=== PATIENT | female | born 1955 | race African-American/Black ===

== ENCOUNTER 2018-03-01 11:17 | Emergency (ER) | payer OTHER ==
[~2018-03-01] VITALS: Ht 160 cm; Wt 113.4 kg
[~2018-03-01 11:17] MED LIST: Aspirin PO; CIPR500T94 PO; ONDA4TAB10 SL; SIMV40TA PO
[2018-03-01 11:20] VITALS: BP 192/93
[2018-03-01] MEDS ORDERED: MORPHINE SULFATE 10 MG/ML VIAL. IV ONE (12:00)
--- NOTE | 2018-03-01 13:36 | RAD ---
Right lower extremity venous duplex study 03/01/2018 Clinical History: Right leg pain and swelling. Technique: Using a combination of real time ultrasound imaging and color-flow and pulse Doppler imaging techniques along with graded compression and augmentation, duplex evaluation of the deep venous system of the right lower extremity was performed. Multiple images were obtained. Findings: There is no sonographic evidence of deep venous thrombosis involving the visualized deep venous structures of right lower extremity. Impression: Negative study. Electronically signed by: Soto Rowan MD (03/01/2018 1:33 PM) [facility]
[2018-03-01 14:23] LABS: BASO # 0.1 x10^3/uL (0.0-0.2); BASO % 1 % (0-3); CALCIUM 8.8 mg/dL (8.5-10.1); CREATININE 0.9 mg/dL (0.6-1.0); EOS # 0.1 x10^3/uL (0.0-0.7); EOS % 1 % (0-3); HEMATOCRIT 44.2 % (36.0-47.0); HEMOGLOBIN 14.3 g/dL (12.0-15.5); LYMPH # 1.9 x10^3/uL (1.0-4.8); LYMPH % 29 % (24-48); MEAN CORPUSCULAR HEMOGLOBIN 26 pg (25-35); MEAN CORPUSCULAR HGB CONC 32 g/dL (31-37); MEAN CORPUSCULAR VOLUME 80 fL (79-100); MONO # 0.5 x10^3/uL (0.0-1.1); MONO % 7 % (0-9); NEUT % 62 % (31-73); PLATELET COUNT 137 x10^3/uL (140-400); POTASSIUM 3.6 mmol/L (3.5-5.1); RED BLOOD COUNT 5.55 x10^6/uL (3.50-5.40); RED CELL DISTRIBUTION WIDTH 14.3 % (11.5-14.5); WHITE BLOOD COUNT 6.4 x10^3/uL (4.0-11.0)
[2018-03-01 14:25] LABS: C-REACTIVE PROTEIN 3.8 mg/L (0-3.3)
--- NOTE | 2018-03-01 15:21 | PHYS DOC ---
Past Medical History Past Medical History: Arthritis, CVA, Diabetes-Type II, High Cholesterol, TIA Past Surgical History: No Surgical History Alcohol Use: Rarely Drug Use: None Adult General Chief Complaint Chief Complaint: LOWER EXT PAIN HPI HPI Patient is a 63 year old female who presents with right leg pain. Patient has had right leg pain and what she perceives to be swelling over the last 6 days. She did not have any trauma. She has no recent travel. She has no history of thromboembolic disease. She does have a known history of diabetes but states she has not previously had any pain associated with that diagnosis. She has otherwise been at baseline health. No fever or chills. No respiratory symptoms. She has been eating and drinking and eliminating normally. Review of Systems Review of Systems Constitutional: Denies fever or chills Eyes: Denies change in visual acuity HENT: Denies nasal congestion Respiratory: Denies cough or shortness of breath Cardiovascular: No additional information GI: Denies abdominal pain, nausea : Denies dysuria Musculoskeletal: Denies back pain Integument: Denies rash Neurologic: Denies headache Endocrine: Denies polyuria All other systems were reviewed and found to be within normal limits, except as documented in this note. Current Medications Current Medications Current Medications Medications (Trade) Dose Ordered Sig/Efren Start Time Stop Time Status Last Admin Dose Admin Morphine Sulfate (Morphine Sulfate) 6 mg 1X ONCE 03/01/18 12:00 03/01/18 12:01 DC 03/01/18 11:58 6 MG Allergies Allergies Allergies Coded Allergies Type Severity Reaction Last Updated Verified No Known Drug Allergies 02/19/14 No Physical Exam Physical Exam Constitutional: Well developed, well nourished, no acute distress, non-toxic appearance HENT: Normocephalic, atraumatic, bilateral external ears normal Eyes: PERRLA, EOMI, conjunctiva normal Neck: Normal range of motion, no tenderness Cardiovascular:Heart rate regular rhythm, no murmur Lungs & Thorax: Bilateral breath sounds clear to auscultation Skin: Warm, dry, no erythema Back: No tenderness Extremities: Normal examination of the area of concern. Compartments in the lower legs are soft and non-tender. No edema or swelling. Neurologic: Alert and oriented X 3, normal motor function Psychologic: Affect normal Current Patient Data Vital Signs Vital Signs Date Time Temp Pulse Resp B/P (MAP) Pulse Ox O2 Delivery O2 Flow Rate FiO2 9/2/18 11:58 18 03/01/18 11:20 97.9 66 192/93 (126) 99 Room Air 97.9 Lab Values Laboratory Tests Test 03/01/18 11:50 White Blood Count 6.4 x10^3/uL (4.0-11.0) Red Blood Count 5.55 x10^6/uL (3.50-5.40) H Hemoglobin 14.3 g/dL (12.0-15.5) Hematocrit 44.2 % (36.0-47.0) Mean Corpuscular Volume 80 fL (79-100) Mean Corpuscular Hemoglobin 26 pg (25-35) Mean Corpuscular Hemoglobin Concent 32 g/dL (31-37) Red Cell Distribution Width 14.3 % (11.5-14.5) Platelet Count 137 x10^3/uL (140-400) L Neutrophils (%) (Auto) 62 % (31-73) Lymphocytes (%) (Auto) 29 % (24-48) Monocytes (%) (Auto) 7 % (0-9) Eosinophils (%) (Auto) 1 % (0-3) Basophils (%) (Auto) 1 % (0-3) Neutrophils # (Auto) 4.0 x10^3uL (1.8-7.7) Lymphocytes # (Auto) 1.9 x10^3/uL (1.0-4.8) Monocytes # (Auto) 0.5 x10^3/uL (0.0-1.1) Eosinophils # (Auto) 0.1 x10^3/uL (0.0-0.7) Basophils # (Auto) 0.1 x10^3/uL (0.0-0.2) Sodium Level 142 mmol/L (136-145) Potassium Level 3.6 mmol/L (3.5-5.1) Chloride Level 105 mmol/L (98-107) Carbon Dioxide Level 28 mmol/L (21-32) Anion Gap 9 (6-14) Blood Urea Nitrogen 14 mg/dL (7-20) Creatinine 0.9 mg/dL (0.6-1.0) Estimated GFR (Cockcroft-Gault) 76.0 Glucose Level 168 mg/dL (70-99) H Calcium Level 8.8 mg/dL (8.5-10.1) C-Reactive Protein, Quantitative 3.8 mg/L (0-3.3) H Laboratory Tests 03/01/18 11:50 Laboratory Tests 03/01/18 11:50 EKG EKG [] Radiology/Procedures Radiology/Procedures Duplex of right LE: Negative for DVT Course & Med Decision Making Course & Med Decision Making Pertinent Labs and Imaging studies reviewed. (See chart for details) Patient was evaluated for right leg pain. The examination of her leg was nonacute. She had an ultrasound which did not reveal DVT. Following this, labs were collected. CRP was not significantly elevated. White count was WAS normal. The cause for her leg pain is unclear although emergencies have been ruled out. Plan is for discharge home. She is placed on some ibuprofen for pain and [place] for more severe pain. Opiate precautions are discussed. The patient is accompanied by her family members today who are driving her home. Patient was also noted to have high blood pressure during the ED course sometimes with systolic blood pressures over 200. She was informed of these findings and advised again to follow up with her primary care doctor. Dragon Disclaimer Dragon Disclaimer This electronic medical record was generated, in whole or in part, using a voice recognition dictation system. Departure Departure Referrals: NO PCP (PCP) NANCY MADSEN DO Mar 01, 2018 15:20
[2018-03-01] MEDS ORDERED: HYDR-971 PO (15:28)
[2018-03-01] MEDS ORDERED: IBUP-1060 PO (15:28)
== END 2018-03-01 15:35 | disposition home or self-care (01) ==
LOC: ER 11:17
DX: M79.604 Pain in right leg (principal); E11.9 Type 2 diabetes mellitus without complications; E78.00 Pure hypercholesterolemia, unspecified; Z86.73 Personal history of transient ischemic attack (TIA), and cerebral infarction without residual deficits
CPT/HCPCS: 36415; 80048; 85025; 86140; 93971; 96374; 99285; J2270

== ENCOUNTER 2018-09-17 15:36 | Emergency (ER) | payer OTHER ==
[~2018-09-17] VITALS: Ht 157.5 cm; Wt 117.9 kg
[~2018-09-17 15:36] MED LIST changes: +HYDR-3164 PO; +IBUP-1060 PO
--- NOTE | 2018-09-17 18:56 | PHYS DOC ---
Past Medical History Past Medical History: Arthritis, CVA, Diabetes-Type II, Glaucoma, High Cholesterol, TIA Additional Past Medical Histor: MINI STROKE 6 MONTHS AGO Past Surgical History: No Surgical History Alcohol Use: Rarely Drug Use: None Adult General Chief Complaint Chief Complaint: HEADACHE HPI HPI Patient is a 63-year-old female who presents with complaint of elevated blood pressure and headache. She also indicates that she has a little bit of nausea. She denies any chest pain or shortness of breath. She does indicate that her legs off of times. Patient states that her blood pressures have been running high in the 180s to 190s for quite some time but states that she is on no blood pressure medication. She states that it is been a long time since she has been seen by a physician. Review of Systems Review of Systems Constitutional: Denies fever or chills [] Eyes: Denies change in visual acuity, redness, or eye pain [] Respiratory: Denies cough or shortness of breath [] Cardiovascular: No additional information not addressed in HPI [] GI: Denies abdominal pain, nausea, vomiting or diarrhea [] Musculoskeletal: Denies back pain or joint pain [] Integument: Denies rash or skin lesions [] Neurologic: Complains of headache without focal weakness or sensory changes [] All other systems were reviewed and found to be within normal limits, except as documented in this note. Current Medications Current Medications Current Medications Medications (Trade) Dose Ordered Sig/[facility] Start Time Stop Time Status Last Admin Dose Admin Clonidine HCl (Catapres) 0.2 mg 1X ONCE 09/17/18 20:15 09/17/18 20:16 DC 09/17/18 20:25 0.2 MG Allergies Allergies Allergies Coded Allergies Type Severity Reaction Last Updated Verified No Known Drug Allergies 02/19/14 No Physical Exam Physical Exam Constitutional: Well developed, well nourished, no acute distress, non-toxic appearance. [] HENT: Normocephalic, atraumatic, bilateral external ears normal, oropharynx moist, no oral exudates, nose normal. [] Eyes: PERRLA, EOMI, conjunctiva normal, no discharge. [] Neck: Normal range of motion, no tenderness, supple, no stridor. [] Cardiovascular: Regular rate and rhythm[] Lungs & Thorax: Bilateral breath sounds clear to auscultation [] Abdomen: Bowel sounds normal, soft, no tenderness. [] Skin: Warm, dry, no erythema, no rash. [] Extremities: No tenderness, no cyanosis, no clubbing, ROM intact, no edema. [] Neurologic: Alert and oriented X 3, no focal deficits noted. [] Current Patient Data Vital Signs Vital Signs Date Time Temp Pulse Resp B/P (MAP) Pulse Ox O2 Delivery O2 Flow Rate FiO2 09/17/18 20:25 62 217/93 09/17/18 18:20 98.2 20 98 Room Air 98.2 Lab Values Laboratory Tests Test 09/17/18 19:09 09/17/18 20:15 White Blood Count 8.9 x10^3/uL (4.0-11.0) Red Blood Count 5.86 x10^6/uL (3.50-5.40) H Hemoglobin 14.7 g/dL (12.0-15.5) Hematocrit 46.8 % (36.0-47.0) Mean Corpuscular Volume 80 fL (79-100) Mean Corpuscular Hemoglobin 25 pg (25-35) Mean Corpuscular Hemoglobin Concent 32 g/dL (31-37) Red Cell Distribution Width 14.4 % (11.5-14.5) Platelet Count 141 x10^3/uL (140-400) Neutrophils (%) (Auto) 54 % (31-73) Lymphocytes (%) (Auto) 34 % (24-48) Monocytes (%) (Auto) 9 % (0-9) Eosinophils (%) (Auto) 2 % (0-3) Basophils (%) (Auto) 1 % (0-3) Neutrophils # (Auto) 4.8 x10^3uL (1.8-7.7) Lymphocytes # (Auto) 3.0 x10^3/uL (1.0-4.8) Monocytes # (Auto) 0.8 x10^3/uL (0.0-1.1) Eosinophils # (Auto) 0.1 x10^3/uL (0.0-0.7) Basophils # (Auto) 0.1 x10^3/uL (0.0-0.2) Sodium Level 143 mmol/L (136-145) Potassium Level 4.6 mmol/L (3.5-5.1) Chloride Level 106 mmol/L (98-107) Carbon Dioxide Level 31 mmol/L (21-32) Anion Gap 6 (6-14) Blood Urea Nitrogen 13 mg/dL (7-20) Creatinine 0.8 mg/dL (0.6-1.0) Estimated GFR (Cockcroft-Gault) 87.1 BUN/Creatinine Ratio 16 (6-20) Glucose Level 156 mg/dL (70-99) H Calcium Level 9.2 mg/dL (8.5-10.1) Total Bilirubin 0.3 mg/dL (0.2-1.0) Aspartate Amino Transferase (AST) 16 U/L (15-37) Alanine Aminotransferase (ALT) 22 U/L (14-59) Alkaline Phosphatase 98 U/L (46-116) Troponin I Quantitative < 0.017 ng/mL (0.000-0.055) Total Protein 8.0 g/dL (6.4-8.2) Albumin 3.5 g/dL (3.4-5.0) Albumin/Globulin Ratio 0.8 (1.0-1.7) L Urine Collection Type Unknown Urine Color Yellow Urine Clarity Cloudy Urine pH 5.0 Urine Specific [place] 1.025 Urine Protein Negative mg/dL (NEG-TRACE) Urine Glucose (UA) Negative mg/dL (NEG) Urine Ketones (Stick) 15 mg/dL (NEG) Urine Blood Large (NEG) Urine Nitrite Negative (NEG) Urine Bilirubin Negative (NEG) Urine Urobilinogen Dipstick 1.0 mg/dL (0.2 mg/dL) Urine Leukocyte Esterase Negative (NEG) Urine RBC 11-20 /HPF (0-2) Urine WBC 1-4 /HPF (0-4) Urine Squamous Epithelial Cells Many /LPF Urine Bacteria Many /HPF (0-FEW) Urine Mucus Slight /LPF Laboratory Tests 09/17/18 19:09 Laboratory Tests 09/17/18 19:09 EKG EKG [] Radiology/Procedures Radiology/Procedures [] Course & Med Decision Making Course & Med Decision Making Pertinent Labs and Imaging studies reviewed. (See chart for details) [] Dragon Disclaimer Dragon Disclaimer This electronic medical record was generated, in whole or in part, using a voice recognition dictation system. Departure Departure Impression: Primary Impression: Essential hypertension Disposition: HOME, SELF-CARE Condition: STABLE Referrals: NO PCP (PCP) Patient Instructions: Hypertension Additional Instructions: Follow-up with your primary care provider in the next week. Scripts Lisinopril/Hydrochlorothiazide (LISINOPRIL-HCTZ 10-12.5 MG TAB) 1 Each Tablet 1 TAB PO DAILY, #30 TAB Prov: OLIVERIO ADAMES Jr. DO 09/17/18 OLIVERIO ADAMES Jr. DO Sep 17, 2018 18:56
[2018-09-17 19:30] LABS: BASO # 0.1 x10^3/uL (0.0-0.2); BASO % 1 % (0-3); EOS # 0.1 x10^3/uL (0.0-0.7); EOS % 2 % (0-3); HEMATOCRIT 46.8 % (36.0-47.0); HEMOGLOBIN 14.7 g/dL (12.0-15.5); LYMPH % 34 % (24-48); MEAN CORPUSCULAR HEMOGLOBIN 25 pg (25-35); MEAN CORPUSCULAR HGB CONC 32 g/dL (31-37); MEAN CORPUSCULAR VOLUME 80 fL (79-100); MONO # 0.8 x10^3/uL (0.0-1.1); MONO % 9 % (0-9); NEUT # 4.8 x10^3uL (1.8-7.7); NEUT % 54 % (31-73); PLATELET COUNT 141 x10^3/uL (140-400); RED BLOOD COUNT 5.86 x10^6/uL (3.50-5.40); RED CELL DISTRIBUTION WIDTH 14.4 % (11.5-14.5); WHITE BLOOD COUNT 8.9 x10^3/uL (4.0-11.0)
[2018-09-17 19:38] LABS: CALCIUM 9.2 mg/dL (8.5-10.1); CREATININE 0.8 mg/dL (0.6-1.0); GFR 87.1; POTASSIUM 4.6 mmol/L (3.5-5.1)
[2018-09-17 19:45] LABS: ALBUMIN 3.5 g/dL (3.4-5.0); ALBUMIN/GLOBULIN RATIO 0.8 (1.0-1.7); TOTAL BILIRUBIN 0.3 mg/dL (0.2-1.0)
[2018-09-17] MEDS ORDERED: cloNIDine HCL 0.1 MG TABLET PO ONE (20:15)
[2018-09-17 20:31] LABS: BILIRUBIN,URINE NEGATIVE (NEG); CLARITY,URINE CLOUDY; COLOR,URINE YELLOW; NITRITE,URINE NEGATIVE (NEG); PROTEIN,URINE NEGATIVE (NEG-TRACE)
[2018-09-17 20:50] LABS: SQUAMOUS EPITHELIAL CELL,UR MANY /LPF
[2018-09-17 20:51] LABS: BACTERIA,URINE MANY /HPF (0-FEW)
[2018-09-17 21:09] VITALS: BP 157/69
[2018-09-17] MEDS ORDERED: LISI1TAB3 PO (21:15)
--- NOTE | 2018-09-18 08:42 | EKG ---
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
== END 2018-09-17 21:54 | disposition home or self-care (01) ==
LOC: ER 15:36
DX: I10 Essential (primary) hypertension (principal); R51 Headache; R11.0 Nausea; E11.39 Type 2 diabetes mellitus with other diabetic ophthalmic complication; H40.9 Unspecified glaucoma; E78.00 Pure hypercholesterolemia, unspecified; Z86.73 Personal history of transient ischemic attack (TIA), and cerebral infarction without residual deficits
CPT/HCPCS: 36415; 80053; 81001; 84484; 85025; 87086; 93005; 99284-25

== ENCOUNTER 2020-02-14 20:27 | Inpatient (IN) | payer MEDICAID, OTHER ==
[~2020-02-14] VITALS: Ht 162.6 cm; Wt 116.1 kg
[~2020-02-14 20:27] MED LIST changes: +LISI1TAB23 PO
--- NOTE | 2020-02-14 22:34 | PHYS DOC ---
Past Medical History Past Medical History: Arthritis, CVA, Diabetes-Type II, Glaucoma, High Ch olesterol, TIA Additional Past Medical Histor: MINI STROKE Past Surgical History: No Surgical History Smoking Status: Current Every Day Smoker Alcohol Use: Rarely Drug Use: None General Adult EDM: Chief Complaint: NAUSEA/VOMITING/DIARRHA HPI: HPI: Patient is a 65 year old female who presents with complaints of nausea and vomiting. She reports that it started on Friday on Friday evening she was at home. She began to have some nausea which was followed by vomiting. Patient reports that she generally suffers from constipation and has had some bowel movements but denies any diarrhea. She has had no more than 1 bowel movement daily. No melena, no hematochezia, the emesis is bilious in nature. Patient denies any difficulty with abdominal pain but does complain of some low back pain. The low back pain started after she started vomiting. Patient points to the right iliolumbar and pelvic brim area. The pain does not radiate, is worse with movement and is aching in nature. Patient denies any change in urination, fever, chills, sweats, cough, change in smell or taste, shortness of breath or chest pain. Review of Systems: Review of Systems: Constitutional: Denies fever or chills. [] Eyes: Denies change in visual acuity. [] HENT: Denies nasal congestion or sore throat. [] Respiratory: Denies cough or shortness of breath. [] Cardiovascular: Denies chest pain or edema. [] GI: See HPI [] : Denies dysuria. [] Musculoskeletal: See HPI. [] Integument: Denies rash. [] Neurologic: Denies headache, focal weakness or sensory changes. [] Endocrine: Denies polyuria or polydipsia. [] Lymphatic: Denies swollen glands. [] Psychiatric: Denies depression or anxiety. [] Heart Score: Risk Factors: Risk Factors: DM, Current or recent (<one month) smoker, HTN, HLP, family history of CAD, obesity. Risk Scores: Score 0 - 3: 2.5% MACE over next 6 weeks - Discharge Home Score 4 - 6: 20.3% MACE over next 6 weeks - Admit for Clinical Observation Score 7 - 10: 72.7% MACE over next 6 weeks - Early Invasive Strategies Allergies: Allergies: Allergies Coded Allergies Type Severity Reaction Last Updated Verified No Known Drug Allergies 02/19/14 No Physical Exam: PE: Constitutional: Well developed, well nourished, no acute distress, non-toxic appearance. [] HENT: Normocephalic, atraumatic, bilateral external ears normal, oropharynx dry, posterior oropharynx with mild erythema no oral exudates, nose normal. [] Eyes: PERRLA, EOMI, conjunctiva normal, no discharge. [] Neck: Normal range of motion, no tenderness, supple, no stridor. [] Cardiovascular:Heart rate regular rhythm, no murmur [] Lungs & Thorax: Bilateral breath sounds clear to auscultation [] Abdomen: Bowel sounds normal, soft, tender in the epigastrium and right upper quadrant, negative [place] sign, pain worsened with increasing abdominal wall tension, no masses, no pulsatile masses. [] Skin: Warm, dry, no erythema, no rash. [] Back: No tenderness, no CVA tenderness. All dermatomes and myotomes of the lower extremities were tested and normal, tenderness of the iliolumbar muscles and pelvic brim reproducing her pain [] Extremities: No tenderness, no cyanosis, no clubbing, ROM intact, no edema. [] Neurologic: Alert and oriented X 3, normal motor function, normal sensory function, no focal deficits noted. [] [] Current Patient Data: Vital Signs: Vital Signs Date Time Temp Pulse Resp B/P (MAP) Pulse Ox O2 Delivery O2 Flow Rate FiO2 02/14/20 20:30 97.7 88 16 149/82 (104) 98 Room Air 97.7 EKG: EKG: [] Radiology/Procedures: Radiology/Procedures: [] Course & Med Decision Making: Course & Med Decision Making Pertinent Labs and Imaging studies reviewed. (See chart for details) 0106-patient was seen and reevaluated. I discussed all laboratory and ultrasound data with patient. I also discussed the case with Dr. Mishra who agreed to consult with the patient for consideration of cholecystectomy. I admitted to the hospitalist service. [] Dragon Disclaimer: Dragon Disclaimer: This electronic medical record was generated, in whole or in part, using a voice recognition dictation system. Departure Departure Impression: Primary Impression: Acute cholecystitis Additional Impressions: Common bile duct stone Right upper quadrant abdominal pain Nausea & vomiting Qualified Codes: R11.14 - Bilious vomiting Disposition: 09 ADMITTED INPATIENT Condition: STABLE Referrals: NO PCP (PCP) Justicifation of Admission Dx: Justifications for Admission: Justification of Admission Dx: Yes Comments: Acute cholecystitis with common bile duct stone RAFY LING MD Feb 14, 2020 22:34
[2020-02-14 22:42] LABS: BASO # 0.1 x10^3/uL (0.0-0.2); BASO % 1 % (0-3); EOS # 0.2 x10^3/uL (0.0-0.7); EOS % 2 % (0-3); HEMATOCRIT 42.5 % (36.0-47.0); HEMOGLOBIN 13.6 g/dL (12.0-15.5); LYMPH # 1.6 x10^3/uL (1.0-4.8); LYMPH % 18 % (24-48); MEAN CORPUSCULAR HEMOGLOBIN 26 pg (25-35); MEAN CORPUSCULAR HGB CONC 32 g/dL (31-37); MEAN CORPUSCULAR VOLUME 80 fL (79-100); MONO # 0.7 x10^3/uL (0.0-1.1); MONO % 9 % (0-9); NEUT # 6.1 x10^3/uL (1.8-7.7); NEUT % 70 % (31-73); RED BLOOD COUNT 5.32 x10^6/uL (3.50-5.40); RED CELL DISTRIBUTION WIDTH 13.4 % (11.5-14.5); WHITE BLOOD COUNT 8.7 x10^3/uL (4.0-11.0)
[2020-02-14 22:51] LABS: CALCIUM 8.3 mg/dL (8.5-10.1); GFR 66.9; POTASSIUM 3.1 mmol/L (3.5-5.1)
[2020-02-14 22:55] LABS: BILIRUBIN,URINE MODERATE (NEG); CLARITY,URINE CLOUDY; NITRITE,URINE NEGATIVE (NEG); PROTEIN,URINE NEGATIVE (NEG-TRACE)
[2020-02-14 22:58] LABS: ALBUMIN 3.1 g/dL (3.4-5.0); ALBUMIN/GLOBULIN RATIO 0.8 (1.0-1.7); TOTAL BILIRUBIN 3.4 mg/dL (0.2-1.0)
[2020-02-14] MEDS ORDERED: METOCLOPRAMIDE HCL 10 MG/2 ML VIAL. IVP ONE (23:00)
[2020-02-14] MEDS ORDERED: KETOROLAC 30 MG/ML VIAL. IVP ONE (23:00)
[2020-02-14] MEDS ORDERED: IV NORMAL SALINE 1000ML BAG 1,000 ML IV ONE (23:00)
[2020-02-14 23:01] LABS: COLOR,URINE AMBER
[2020-02-14 23:02] LABS: AMORPHOUS SEDIMENT,UR PRESENT /HPF; BACTERIA,URINE MODERATE /HPF (0-FEW); RBC,URINE 0 /HPF (0-2); SQUAMOUS EPITHELIAL CELL,UR MANY /LPF
[2020-02-14 23:06] LABS: PLATELET COUNT 182 x10^3/uL (140-400)
[2020-02-14] MEDS ORDERED: HYDROmorphone 2 MG/ML VIAL IV ONE (23:45)
[2020-02-14] MEDS ORDERED: CONTRAST GIVEN. MC PRN (23:45)
[2020-02-14] MEDS ORDERED: IOHEXOL 300 MG/ML 100ML VIAL. IV ONE (23:45)
--- NOTE | 2020-02-15 00:33 | RAD ---
INDICATION : Reason: ruq ABD PAIN / Spl. Instructions: / History: COMPARISON: None TECHNIQUE: Multiple ultrasound images obtained through the abdomen in grayscale and color. FINDINGS: Liver: Echogenic. Partially visualized. Gallbladder: Stones and sludge within the distention. Measures up to 10.3 cm. Wall thickening up to about 5 mm. IVC: Partially distended at level of liver. Common Bile Duct: Dilated, 7 mm-8mm. Pancreas: Largely obscured by overlying soft tissues. Pancreatic duct is partially seen and appears dilated up to 4-5 mm. Right Kidney: No hydronephrosis. IMPRESSION: * Bile duct dilation is identified. There is also gallstones seen. Cause such as a distal common bile duct stone are within the differential given these findings. * There is some wall thickening with distended gallbladder with stones. Causes such as cholecystitis are not excluded on this exam given these findings. * Echogenic liver which can be from fatty infiltration. Electronically signed by: Vaughn Sandoval MD (02/15/2020 12:30 AM) [id number]
[2020-02-15] MEDS ORDERED: PIPERACILLIN/TAZOBACTAM 3.375 GM in IV NORMAL SALINE 50ML 50 ML IV ONE (01:00)
[2020-02-15] MEDS ORDERED: MORPHINE SULFATE 4 MG/ML VIAL. IV PRN (01:15)
--- NOTE | 2020-02-15 05:15 | NUR ---
The patient, ELFEGO PARSONS, 65 y/o, F admitted by KATHY MADDEN MD, was given written information regarding hospital policies, unit procedures and contact persons. patient was transferred to room 528 at this time via ED bed, assisted by ED staff member. Valuables were checked and noted. patient is currently laying in bed talking on the phone with her [id number] and watching TV. patient denies any needs at this time. this RN will continue to monitor the patient at this time.
[2020-02-15] MEDS: IV NORMAL SALINE 1000ML BAG 1,000 ML IV SCH ×2 (05:52→18:34)
[2020-02-15 07:00] VITALS: BP_SYST 134; BP_SYST 135; BP_DIAS 28; BP_DIAS 30
--- NOTE | 2020-02-15 08:15 | PDOC1 ---
History and Physical Date of Admission Date of Admission DATE: 02/15/20 TIME: 08:11 Identification/Chief Complaint Chief Complaint Nausea and vomiting Source Source: Patient History of Present Illness History of Present Illness Ms Cox is a 65yo F w/ PMHx Arthritis, CVA, Diabetes-Type II, Glaucoma, High Cholesterol, TIA, smoker, bipolar disorder who comes to the ED with complaints of abdominal pain, nausea and vomiting. She reports that it started on 02/12/2020 she awoke with RUQ and mid back pain while at home. The pain comes and goes, does not radiate into other parts of her abdomen. She began to have some nausea which was followed by vomiting. She continues to move her bowels, but has not been able to tolerate any food. No melena, no hematochezia, the emesis is bilious. Patient denies any change in urination, fever, chills, sweats, cough, change in smell or taste, shortness of breath or chest pain. Labs significant for WBC 8.7, Hb 13.6, platelets 22, NA 142, K3.1, CR 1, glucose 216, bilirubin 3.4, AST 571, ALT 930, alkaline phosphatase 198, albumin 3.1, lipase 88. RUQ US - Stones and sludge within the distention. Measures up to 10.3 cm. Wall thickening up to about 5 mm, Common Bile Duct: Dilated, 7 mm-8mm. Pancreatic duct 4-5 mm. Admitted for further care Past Medical History Cardiovascular: HTN Endocrine: Diabetes Past Surgical History Past Surgical History: No pertinent history Family History Family History: High Cholestrol, Hypertension Social History Smoke: <1 pack per day ALCOHOL: none Drugs: None Current Problem List Problem List Problems Medical Problems: (1) Acute cholecystitis Status: Acute (2) Common bile duct stone Status: Acute (3) Nausea & vomiting Status: Acute (4) Right upper quadrant abdominal pain Status: Acute Current Medications Current Medications Current Medications Ketorolac Tromethamine (Toradol 30mg Vial) 30 mg 1X ONCE IVP Last administered on 02/14/20at 23:18; Start 02/14/20 at 23:00; Stop 02/14/20 at 23:01; Status DC Metoclopramide HCl (Reglan Vial) 10 mg 1X ONCE IVP Last administered on 02/14/20at 23:18; Start 8/17/20 at 23:00; Stop 02/14/20 at 23:01; Status DC Sodium Chloride 1,000 ml @ 1,000 mls/hr 1X ONCE IV Last administered on 02/14/20at 23:18; Start 02/14/20 at 23:00; Stop 02/14/20 at 23:59; Status DC Hydromorphone HCl (Dilaudid) 0.5 mg 1X ONCE IV ; Start 02/14/20 at 23:45; Stop 02/14/20 at 23:46; Status DC Iohexol (Omnipaque 300 Mg/ml) 75 ml 1X ONCE IV ; Start 02/14/20 at 23:45; Stop 02/14/20 at 23:46; Status DC Info (CONTRAST GIVEN -- Rx MONITORING) 1 each PRN DAILY PRN MC SEE COMMENTS; Start 02/14/20 at 23:45; Stop 02/16/20 at 23:44 Piperacillin Sod/ Tazobactam Sod 3.375 gm/Sodium Chloride 50 ml @ 100 mls/hr 1X ONCE IV Last administered on 02/15/20at 01:00; Start 02/15/20 at 01:00; Stop 02/15/20 at 01:29; Status DC Morphine Sulfate (Morphine Sulfate) 4 mg PRN Q2HR PRN IV SEVERE PAIN 7-10; Start 02/15/20 at 01:15; Stop 02/16/20 at 01:14 Sodium Chloride 1,000 ml @ 75 mls/hr [id number] IV Last administered on 02/15/20at 05:52; Start 02/15/20 at 01:09; Stop 02/16/20 at 01:08 Active Scripts Active Lisinopril-Hctz 10-12.5 Mg Tab (Lisinopril/Hydrochlorothiazide) 1 Each Tablet 1 Tab PO DAILY Hubbell 5-325 Tablet (Acetaminophen/Hydrocodone Bitart) 1 Each Tablet 1-2 Each PO PRN Q6HRS PRN as needed for pain Ibuprofen 800 Mg Tablet 800 Mg PO PRN TID PRN take with food or milk to avoid upsetting stomach Cipro (Ciprofloxacin Hcl) 500 Mg Tablet 1 Tab PO BID Zofran Odt (Ondansetron) 4 Mg Tab.rapdis 1 Tab SL Q6HRS PRN [Aspirin] 325 MG Tablet.dr 325 Mg PO [id number] Zocor (Simvastatin) 40 Mg Tablet 40 Mg PO QHS 30 Days Allergies Allergies: Coded Allergies: No Known Drug Allergies (Unverified , 02/19/14) ROS General: No: Chills, Night Sweats, Fatigue, Malaise, Appetite, Other PSYCHOLOGICAL ROS: No: Anxiety, Behavioral Disorder, Concentration difficultie, Decreased libido, Depression, Disorientation, Hallucinations, Hostility, Irritablity, Memory difficulties, Mood Swings, Obsessive thoughts, Physical abuse, Sexual abuse, Sleep disturbances, Suicidal ideation, Other Eyes: No Blurry vision, No Decreased vision, No Double vision, No Dry eyes, No Excessive tearing, No Eye Pain, No Itchy Eyes, No Loss of vision, No Photophobia, No Scotomata, No Uses contacts, No Uses glasses, No Other HEENT: No: Heacaches, Visual Changes, Hearing change, Nasal congestion, Nasal discharge, Oral lesions, Sinus pain, Sore Throat, Epistaxis, Sneezing, Snoring, Tinnitus, Vertigo, Vocal changes, Other ALLERGY AND IMMUNOLOGY: No: Hives, Insect Bite Sensitivity, Itchy/Watery Eyes, Nasal Congestion, Post Nasal Drip, Seasonal Allergies, Other Hematological and Lymphatic: No: Bleeding Problems, Blood Clots, Blood Transfusions, Brusing, Night Sweats, Pallor, Swollen Lymph Nodes, Other ENDOCRINE: No: Breast Changes, Galactorrhea, Hair Pattern Changes, Hot Flashes, Malaise/lethargy, Mood Swings, Palpitations, Polydipsia/polyuria, Skin Changes, Temperature Intolerance, Unexpected Weight Changes, Other Breast: No New/Changing Breast Lumps, No Nipple changes, No Nipple discharge, No Other Respiratory: No: Cough, Hemoptysis, Orthopnea, Pleuritic Pain, Shortness of breath, SOB with excertion, Sputum Changes, Stridor, Tachypnea, Wheezing, Other Cardiovascular: No Chest Pain, No Palpitations, No Orthopnea, No Paroxysmal Noc. Dyspnea, No Edema, No Lt Headedness, No Other Gastrointestinal: Yes Nausea, Yes Vomiting, Yes Abdominal Pain; No Diarrhea, No Constipation, No Melena, No Hematochezia, No Other Genitourinary: No Dysuria, No Frequency, No Incontinence, No Hematuria, No Retention, No Discharge, No Urgency, No Pain, No Flank Pain, No Other, No , No , No , No , No , No , No Musculoskeletal: No Gait Disturbance, No Joint Pain, No Joint Stiffness, No Joint Swelling, No Muscle Pain, No Muscular Weakness, No Pain In:, No Swelling In:, No Other Neurological: No Behavorial Changes, No Bowel/Bladder ControlChng, No Conf usion, No Dizziness, No Gait Disturbance, No Headaches, No Impaired Coord/balance, No Memory Loss, No Numbness/Tingling, No Seizures, No Speech Problems, No Tremors, No Visual Changes, No Weakness, No Other Skin: No Dry Skin, No Eczema, No Hair Changes, No Lumps, No Mole Changes, No Mottling, No Nail Changes, No Pruritus, No Rash, No Skin Lesion Changes, No Ot her, No Acne Physical Exam General: Alert, Oriented X3, Cooperative, mild distress HEENT: Atraumatic, PERRLA, EOMI, Mucous membr. moist/pink Lungs: Clear to auscultation, Normal air movement Heart: S1S2, RRR, no thrills, no rubs, no gallops, no murmurs Abdomen: Normal bowel sounds, Soft, No hepatosplenomegaly, No masses, Other (RUQ tender) Rectal Exam: not examined Extremities: No clubbing, No cyanosis, No edema, Normal pulses, No tenderness/swelling Skin: No rashes, No breakdown, No significant lesion Neuro: Normal gait, Normal speech, Strength at 5/5 X4 ext, Normal tone, Sensation intact, Cranial nerves 3-12 NL, Reflexes 2+ Psych/Mental Status: Mental status NL, Mood NL Vitals Vitals Vital Signs Date Time Temp Pulse Resp B/P (MAP) Pulse Ox O2 Delivery O2 Flow Rate FiO2 02/15/20 05:25 Room Air 02/15/20 04:45 54 192/84 (120) 100 02/14/20 20:30 97.7 16 97.7 Labs Labs Laboratory Tests Test 02/14/20 21:00 02/14/20 21:30 Urine Collection Type Unknown Urine Color Mouna Urine Clarity Cloudy Urine pH 7.0 (<5.0-8.0) Urine Specific [place] 1.020 (1.000-1.030) Urine Protein Negative mg/dL (NEG-TRACE) Urine Glucose (UA) Negative mg/dL (NEG) Urine Ketones (Stick) Trace mg/dL (NEG) Urine Blood Trace (NEG) Urine Nitrite Negative (NEG) Urine Bilirubin Moderate (NEG) Urine Urobilinogen Dipstick 4.0 mg/dL (0.2 mg/dL) Urine Leukocyte Esterase Small (NEG) Urine RBC 0 /HPF (0-2) Urine WBC 5-10 /HPF (0-4) Urine Squamous Epithelial Cells Many /LPF Urine Amorphous Sediment Present /HPF Urine Bacteria Moderate /HPF (0-FEW) Urine Mucus Slight /LPF White Blood Count 8.7 x10^3/uL (4.0-11.0) Red Blood Count 5.32 x10^6/uL (3.50-5.40) Hemoglobin 13.6 g/dL (12.0-15.5) Hematocrit 42.5 % (36.0-47.0) Mean Corpuscular Volume 80 fL (79-100) Mean Corpuscular Hemoglobin 26 pg (25-35) Mean Corpuscular Hemoglobin Concent 32 g/dL (31-37) Red Cell Distribution Width 13.4 % (11.5-14.5) Platelet Count 182 x10^3/uL (140-400) Neutrophils (%) (Auto) 70 % (31-73) Lymphocytes (%) (Auto) 18 % (24-48) Monocytes (%) (Auto) 9 % (0-9) Eosinophils (%) (Auto) 2 % (0-3) Basophils (%) (Auto) 1 % (0-3) Neutrophils # (Auto) 6.1 x10^3/uL (1.8-7.7) Lymphocytes # (Auto) 1.6 x10^3/uL (1.0-4.8) Monocytes # (Auto) 0.7 x10^3/uL (0.0-1.1) Eosinophils # (Auto) 0.2 x10^3/uL (0.0-0.7) Basophils # (Auto) 0.1 x10^3/uL (0.0-0.2) Sodium Level 142 mmol/L (136-145) Potassium Level 3.1 mmol/L (3.5-5.1) Chloride Level 100 mmol/L (98-107) Carbon Dioxide Level 39 mmol/L (21-32) Anion Gap 3 (6-14) Blood Urea Nitrogen 12 mg/dL (7-20) Creatinine 1.0 mg/dL (0.6-1.0) Estimated GFR (Cockcroft-Gault) 66.9 BUN/Creatinine Ratio 12 (6-20) Glucose Level 216 mg/dL (70-99) Calcium Level 8.3 mg/dL (8.5-10.1) Total Bilirubin 3.4 mg/dL (0.2-1.0) Aspartate Amino Transf (AST/SGOT) 571 U/L (15-37) Alanine Aminotransferase (ALT/SGPT) 930 U/L (14-59) Alkaline Phosphatase 188 U/L (46-116) Total Protein 7.0 g/dL (6.4-8.2) Albumin 3.1 g/dL (3.4-5.0) Albumin/Globulin Ratio 0.8 (1.0-1.7) Lipase 88 U/L (73-393) Laboratory Tests Test 02/14/20 21:00 02/14/20 21:30 Urine Collection Type Unknown Urine Color Mouna Urine Clarity Cloudy Urine pH 7.0 (<5.0-8.0) Urine Specific [place] 1.020 (1.000-1.030) Urine Protein Negative mg/dL (NEG-TRACE) Urine Glucose (UA) Negative mg/dL (NEG) Urine Ketones (Stick) Trace mg/dL (NEG) Urine Blood Trace (NEG) Urine Nitrite Negative (NEG) Urine Bilirubin Moderate (NEG) Urine Urobilinogen Dipstick 4.0 mg/dL (0.2 mg/dL) Urine Leukocyte Esterase Small (NEG) Urine RBC 0 /HPF (0-2) Urine WBC 5-10 /HPF (0-4) Urine Squamous Epithelial Cells Many /LPF Urine Amorphous Sediment Present /HPF Urine Bacteria Moderate /HPF (0-FEW) Urine Mucus Slight /LPF White Blood Count 8.7 x10^3/uL (4.0-11.0) Red Blood Count 5.32 x10^6/uL (3.50-5.40) Hemoglobin 13.6 g/dL (12.0-15.5) Hematocrit 42.5 % (36.0-47.0) Mean Corpuscular Volume 80 fL (79-100) Mean Corpuscular Hemoglobin 26 pg (25-35) Mean Corpuscular Hemoglobin Concent 32 g/dL (31-37) Red Cell Distribution Width 13.4 % (11.5-14.5) Platelet Count 182 x10^3/uL (140-400) Neutrophils (%) (Auto) 70 % (31-73) Lymphocytes (%) (Auto) 18 % (24-48) Monocytes (%) (Auto) 9 % (0-9) Eosinophils (%) (Auto) 2 % (0-3) Basophils (%) (Auto) 1 % (0-3) Neutrophils # (Auto) 6.1 x10^3/uL (1.8-7.7) Lymphocytes # (Auto) 1.6 x10^3/uL (1.0-4.8) Monocytes # (Auto) 0.7 x10^3/uL (0.0-1.1) Eosinophils # (Auto) 0.2 x10^3/uL (0.0-0.7) Basophils # (Auto) 0.1 x10^3/uL (0.0-0.2) Sodium Level 142 mmol/L (136-145) Potassium Level 3.1 mmol/L (3.5-5.1) Chloride Level 100 mmol/L (98-107) Carbon Dioxide Level 39 mmol/L (21-32) Anion Gap 3 (6-14) Blood Urea Nitrogen 12 mg/dL (7-20) Creatinine 1.0 mg/dL (0.6-1.0) Estimated GFR (Cockcroft-Gault) 66.9 BUN/Creatinine Ratio 12 (6-20) Glucose Level 216 mg/dL (70-99) Calcium Level 8.3 mg/dL (8.5-10.1) Total Bilirubin 3.4 mg/dL (0.2-1.0) Aspartate Amino Transf (AST/SGOT) 571 U/L (15-37) Alanine Aminotransferase (ALT/SGPT) 930 U/L (14-59) Alkaline Phosphatase 188 U/L (46-116) Total Protein 7.0 g/dL (6.4-8.2) Albumin 3.1 g/dL (3.4-5.0) Albumin/Globulin Ratio 0.8 (1.0-1.7) Lipase 88 U/L (73-393) Images Images RUQ US: Liver: Echogenic. Partially visualized. Gallbladder: Stones and sludge within the distention. Measures up to 10.3 cm. Wall thickening up to about 5 mm. IVC: Partially distended at level of liver. Common Bile Duct: Dilated, 7 mm-8mm. Pancreas: Largely obscured by overlying soft tissues. Pancreatic duct is partially seen and appears dilated up to 4-5 mm. Right Kidney: No hydronephrosis. IMPRESSION: * Bile duct dilation is identified. There is also gallstones seen. Cause such as a distal common bile duct stone are within the differential given these findings. * There is some wall thickening with distended gallbladder with stones. Causes such as cholecystitis are not excluded on this exam given these findings. * Echogenic liver which can be from fatty infiltration. VTE Prophylaxis Ordered VTE Prophylaxis Devices: No VTE Pharmacological Prophylaxi: Yes Assessment/Plan Assessment/Plan A/P: Nausea and vomiting - likely related to cholecystitis, IV antiemetics, NPO RUQ pain - acute cholecystitis with possible choledocholithiasis. Zosyn q6hrs, consult GI and surgery Diabetes-Type II - sliding scale insulin High Cholesterol - hold statin while NPO H/o TIA - counseled on smoking cessation, glycemic control Smoker - counseled on cessation Bipolar disorder - hold meds while NPO. Can offer IV haldol prn FEN - NPO PPX - lovenox FULL CODE Dispo - inpatient 2 midnights Justicifation of Admission Dx: Justifications for Admission: Justification of Admission Dx: Yes KATHY MADDEN MD Feb 15, 2020 08:15
[2020-02-15] MEDS: PIPERACILLIN/TAZOBACTAM 3.375 GM in IV NORMAL SALINE 50ML 50 ML IV SCH ×4 (09:19→23:59)
--- NOTE | 2020-02-15 09:36 | PDOC2 ---
GI CONSULT Date of Service: DATE: 02/15/20 TIME: 09:36 Reason For Consult: CBD stones HPI: HPI: 65 y/o female ill since Friday w/ vomiting, right lower flank/back pain, and "upset" feeling in upper abdomen. Possibly precipitated by eating a greasy taco. Unable to tolerate much food/liquid for a few days. Noted w/ abnormal LFTs - bili 3.4, AST 571, ALT 930, Alk Phos 188, K 3.1. Normal WBC, Hgb, plt, lipase. On US: dilated CBD (7-8mm), GB distention and stones, fatty liver. Denies reflux/heartburn, hematemesis, diarrhea, constipation, hematochezia, melena, and weight loss. About 3-4 weeks ago noted "food went down" slow - this has resolved. No previous EGD or colonoscopy. Prior to this, no GB or liver history. No pancreas or PUD history. Takes ASA 325mg QD since TIA. Has been off other medication for awhile - has not followed-up w/ doctor during pandemic. PMH: PMH: TIA, HTN, HLD, DM FH: Family History: Cancer (sister recently passed from stage IV cancer - unknown kind), Hypertension Social History: Smoke: 1 pack per day ALCOHOL: rare (wine cooler once in a blue [facility]) ROS: GEN: Denies fevers, chills, sweats HEENT: Denies blurred vision, sore throat CV: Denies chest pain RESP: Denies shortness of air, cough GI: Per HPI : Denies hematuria, dysuria ENDO: Denies weight changes NEURO: Denies confusion, dizziness MSK: Denies weakness, joint pain/swelling SKIN: Denies jaundice, pruritus Vitals: Vitals: Vital Signs Date Time Temp Pulse Resp B/P (MAP) Pulse Ox O2 Delivery O2 Flow Rate FiO2 02/15/20 07:00 98.1 56 16 135/28 (63) 95 Room Air 98.1 Labs: Labs: Laboratory Tests Test 02/14/20 21:00 02/14/20 21:30 Urine Collection Type Unknown Urine Color Mouna Urine Clarity Cloudy Urine pH 7.0 (<5.0-8.0) Urine Specific [place] 1.020 (1.000-1.030) Urine Protein Negative mg/dL (NEG-TRACE) Urine Glucose (UA) Negative mg/dL (NEG) Urine Ketones (Stick) Trace mg/dL (NEG) Urine Blood Trace (NEG) Urine Nitrite Negative (NEG) Urine Bilirubin Moderate (NEG) Urine Urobilinogen Dipstick 4.0 mg/dL (0.2 mg/dL) Urine Leukocyte Esterase Small (NEG) Urine RBC 0 /HPF (0-2) Urine WBC 5-10 /HPF (0-4) Urine Squamous Epithelial Cells Many /LPF Urine Amorphous Sediment Present /HPF Urine Bacteria Moderate /HPF (0-FEW) Urine Mucus Slight /LPF White Blood Count 8.7 x10^3/uL (4.0-11.0) Red Blood Count 5.32 x10^6/uL (3.50-5.40) Hemoglobin 13.6 g/dL (12.0-15.5) Hematocrit 42.5 % (36.0-47.0) Mean Corpuscular Volume 80 fL (79-100) Mean Corpuscular Hemoglobin 26 pg (25-35) Mean Corpuscular Hemoglobin Concent 32 g/dL (31-37) Red Cell Distribution Width 13.4 % (11.5-14.5) Platelet Count 182 x10^3/uL (140-400) Neutrophils (%) (Auto) 70 % (31-73) Lymphocytes (%) (Auto) 18 % (24-48) Monocytes (%) (Auto) 9 % (0-9) Eosinophils (%) (Auto) 2 % (0-3) Basophils (%) (Auto) 1 % (0-3) Neutrophils # (Auto) 6.1 x10^3/uL (1.8-7.7) Lymphocytes # (Auto) 1.6 x10^3/uL (1.0-4.8) Monocytes # (Auto) 0.7 x10^3/uL (0.0-1.1) Eosinophils # (Auto) 0.2 x10^3/uL (0.0-0.7) Basophils # (Auto) 0.1 x10^3/uL (0.0-0.2) Sodium Level 142 mmol/L (136-145) Potassium Level 3.1 mmol/L (3.5-5.1) Chloride Level 100 mmol/L (98-107) Carbon Dioxide Level 39 mmol/L (21-32) Anion Gap 3 (6-14) Blood Urea Nitrogen 12 mg/dL (7-20) Creatinine 1.0 mg/dL (0.6-1.0) Estimated GFR (Cockcroft-Gault) 66.9 BUN/Creatinine Ratio 12 (6-20) Glucose Level 216 mg/dL (70-99) Calcium Level 8.3 mg/dL (8.5-10.1) Total Bilirubin 3.4 mg/dL (0.2-1.0) Aspartate Amino Transf (AST/SGOT) 571 U/L (15-37) Alanine Aminotransferase (ALT/SGPT) 930 U/L (14-59) Alkaline Phosphatase 188 U/L (46-116) Total Protein 7.0 g/dL (6.4-8.2) Albumin 3.1 g/dL (3.4-5.0) Albumin/Globulin Ratio 0.8 (1.0-1.7) Lipase 88 U/L (73-393) Allergies: Coded Allergies: No Known Drug Allergies (Unverified , 02/19/14) Medications: Current Medications Medications (Trade) Dose Ordered Sig/Efren Route PRN Reason Start Time Stop Time Status Last Admin Dose Admin Ketorolac Tromethamine (Toradol 30mg Vial) 30 mg 1X ONCE IVP 02/14/20 23:00 02/14/20 23:01 DC 02/14/20 23:18 Metoclopramide HCl (Reglan Vial) 10 mg 1X ONCE IVP 02/14/20 23:00 02/14/20 23:01 DC 02/14/20 23:18 Sodium Chloride 1,000 ml @ 1,000 mls/hr 1X ONCE IV 02/14/20 23:00 02/14/20 23:59 DC 02/14/20 23:18 Piperacillin Sod/ Tazobactam Sod 3.375 gm/Sodium Chloride 50 ml @ 100 mls/hr 1X ONCE IV 02/15/20 01:00 02/15/20 01:29 DC 02/15/20 01:00 Sodium Chloride 1,000 ml @ 75 mls/hr [id number] IV 02/15/20 01:09 02/16/20 01:08 02/15/20 05:52 Piperacillin Sod/ Tazobactam Sod 3.375 gm/Sodium Chloride 50 ml @ 100 mls/hr Q6HRS IV 02/15/20 09:00 02/15/20 09:19 Imaging: Imaging: Abd US IMPRESSION: * Bile duct dilation is identified. There is also gallstones seen. Cause such as a distal common bile duct stone are within the differential given these findings. * There is some wall thickening with distended gallbladder with stones. Causes such as cholecystitis are not excluded on this exam given these findings. * Echogenic liver which can be from fatty infiltration. PE: GEN: NAD HEENT: Atraumatic, PERRL LUNGS: CTAB HEART: RRR ABD: NABS, S/ND/, epigastric and RUQ discomfort (mild) EXTREMITY: No edema SKIN: No rashes, no jaundice NEURO/PSYCH: A & O 3 A/P: A/P: Vomiting, upper abdominal discomfort Abnormal LFTs, hypokalemia Dilated CBD, gallstones Fatty liver CRC screen - none H/o TIA on ASA HTN, HLD, DM - non-compliance -- D/w Dr. Gomez - monitor LFTs and await COVID testing. Surgery consult pending. BRANDEE HERNANDEZ Feb 15, 2020 09:36
[2020-02-15] MEDS: POTASSIUM CHLORIDE 10MEQ 100 ML IV SCH ×2 (10:17→12:35)
[2020-02-15 11:10] VITALS: BP 171/51
--- NOTE | 2020-02-15 11:25 | PDOC2 ---
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 Upset stomach feeling, emesis. Some constipation but apple sauce helped. Could not keep anything down. No similar symptoms in past Past Medical History Cardiovascular: HTN Endocrine: Diabetes Past Surgical History Past Surgical History: No pertinent history Family History Family History: High Cholestrol, Hypertension Social History 1 pack per day ALCOHOL: rare (wine cooler once in a blue [facility]) Drugs: None Current Problem List Problem List Problems Medical Problems: (1) Acute cholecystitis Status: Acute (2) Common bile duct stone Status: Acute (3) Nausea & vomiting Status: Acute (4) Right upper quadrant abdominal pain Status: Acute Current Medications Current Medications Current Medications Ketorolac Tromethamine (Toradol 30mg Vial) 30 mg 1X ONCE IVP Last administered on 02/14/20at 23:18; Start 02/14/20 at 23:00; Stop 02/14/20 at 23:01; Status DC Metoclopramide HCl (Reglan Vial) 10 mg 1X ONCE IVP Last administered on 02/14/20at 23:18; Start 02/14/20 at 23:00; Stop 02/14/20 at 23:01; Status DC Sodium Chloride 1,000 ml @ 1,000 mls/hr 1X ONCE IV Last administered on 02/14/20at 23:18; Start 02/14/20 at 23:00; Stop 02/14/20 at 23:59; Status DC Hydromorphone HCl (Dilaudid) 0.5 mg 1X ONCE IV ; Start 02/14/20 at 23:45; Stop 02/14/20 at 23:46; Status DC Iohexol (Omnipaque 300 Mg/ml) 75 ml 1X ONCE IV ; Start 02/14/20 at 23:45; Stop 02/14/20 at 23:46; Status DC Info (CONTRAST GIVEN -- Rx MONITORING) 1 each PRN DAILY PRN MC SEE COMMENTS; Start 02/14/20 at 23:45; Stop 02/16/20 at 23:44 Piperacillin Sod/ Tazobactam Sod 3.375 gm/Sodium Chloride 50 ml @ 100 mls/hr 1X ONCE IV Last administered on 02/15/20at 01:00; Start 02/15/20 at 01:00; Stop 02/15/20 at 01:29; Status DC Morphine Sulfate (Morphine Sulfate) 4 mg PRN Q2HR PRN IV SEVERE PAIN 7-10; Start 02/15/20 at 01:15 Sodium Chloride 1,000 ml @ 75 mls/hr [id number] IV Last administered on 02/15/20at 05:52; Start 02/15/20 at 01:09; Stop 02/16/20 at 01:08 Piperacillin Sod/ Tazobactam Sod 3.375 gm/Sodium Chloride 50 ml @ 100 mls/hr Q6HRS IV Last administered on 02/15/20at 09:19; Start 02/15/20 at 09:00 Potassium Chloride/Water 100 ml @ 100 mls/hr Q1H IV Last administered on 02/15/20at 10:17; Start 02/15/20 at 09:00; Stop 02/15/20 at 10:59; Status DC Enoxaparin Sodium (Lovenox 40mg Syringe) 40 mg Q24H SQ ; Start 02/15/20 at 14:00 Active Scripts Active Lisinopril-Hctz 10-12.5 Mg Tab (Lisinopril/Hydrochlorothiazide) 1 Each Tablet 1 Tab PO DAILY [place] 5-325 Tablet (Acetaminophen/Hydrocodone Bitart) 1 Each Tablet 1-2 Each PO PRN Q6HRS PRN as needed for pain Ibuprofen 800 Mg Tablet 800 Mg PO PRN TID PRN take with food or milk to avoid upsetting stomach Cipro (Ciprofloxacin Hcl) 500 Mg Tablet 1 Tab PO BID Zofran Odt (Ondansetron) 4 Mg Tab.rapdis 1 Tab SL Q6HRS PRN [Aspirin] 325 MG Tablet.dr 325 Mg PO [id number] Zocor (Simvastatin) 40 Mg Tablet 40 Mg PO QHS 30 Days Allergies Allergies: Coded Allergies: No Known Drug Allergies (Unverified , 02/19/14) ROS General: No: Chills, Other (fevers ) PSYCHOLOGICAL ROS: No: Anxiety, Depression Eyes: No Blurry vision, No Double vision HEENT: No: Heacaches, Sore Throat Hematological and Lymphatic: No: Bleeding Problems, Blood Clots Respiratory: No: Cough, Shortness of breath Cardiovascular: No Chest Pain, No Palpitations Gastrointestinal: Yes Other (see hpi) Genitourinary: No Dysuria, No Hematuria Musculoskeletal: No Joint Pain, No Muscle Pain Neurological: No Impaired Coord/balance, No Numbness/Tingling Skin: No Pruritus, No Rash Physical Exam General: Alert, Oriented X3, Cooperative HEENT: Atraumatic, PERRLA Lungs: Clear to auscultation, Normal air movement Heart: Regular rate, Normal S1, Normal S2 Abdomen: Soft, Other (Mild ttp RUQ ) Extremities: No clubbing, No cyanosis Skin: No rashes, No breakdown Neuro: Normal gait, Normal speech Psych/Mental Status: Mental status NL, Mood NL MUSCULOSKELETAL: No deformity, No swelling Vitals VITALS Vital Signs Date Time Temp Pulse Resp B/P (MAP) Pulse Ox O2 Delivery O2 Flow Rate FiO2 02/15/20 11:10 98.7 59 16 171/51 (91) 96 Room Air 98.7 Labs Labs Laboratory Tests Test 02/14/20 21:00 02/14/20 21:30 02/15/20 09:30 Urine Collection Type Unknown Urine Color Mouna Urine Clarity Cloudy Urine pH 7.0 (<5.0-8.0) Urine Specific [place] 1.020 (1.000-1.030) Urine Protein Negative mg/dL (NEG-TRACE) Urine Glucose (UA) Negative mg/dL (NEG) Urine Ketones (Stick) Trace mg/dL (NEG) Urine Blood Trace (NEG) Urine Nitrite Negative (NEG) Urine Bilirubin Moderate (NEG) Urine Urobilinogen Dipstick 4.0 mg/dL (0.2 mg/dL) Urine Leukocyte Esterase Small (NEG) Urine RBC 0 /HPF (0-2) Urine WBC 5-10 /HPF (0-4) Urine Squamous Epithelial Cells Many /LPF Urine Amorphous Sediment Present /HPF Urine Bacteria Moderate /HPF (0-FEW) Urine Mucus Slight /LPF White Blood Count 8.7 x10^3/uL (4.0-11.0) Red Blood Count 5.32 x10^6/uL (3.50-5.40) Hemoglobin 13.6 g/dL (12.0-15.5) Hematocrit 42.5 % (36.0-47.0) Mean Corpuscular Volume 80 fL (79-100) Mean Corpuscular Hemoglobin 26 pg (25-35) Mean Corpuscular Hemoglobin Concent 32 g/dL (31-37) Red Cell Distribution Width 13.4 % (11.5-14.5) Platelet Count 182 x10^3/uL (140-400) Neutrophils (%) (Auto) 70 % (31-73) Lymphocytes (%) (Auto) 18 % (24-48) Monocytes (%) (Auto) 9 % (0-9) Eosinophils (%) (Auto) 2 % (0-3) Basophils (%) (Auto) 1 % (0-3) Neutrophils # (Auto) 6.1 x10^3/uL (1.8-7.7) Lymphocytes # (Auto) 1.6 x10^3/uL (1.0-4.8) Monocytes # (Auto) 0.7 x10^3/uL (0.0-1.1) Eosinophils # (Auto) 0.2 x10^3/uL (0.0-0.7) Basophils # (Auto) 0.1 x10^3/uL (0.0-0.2) Sodium Level 142 mmol/L (136-145) Potassium Level 3.1 mmol/L (3.5-5.1) Chloride Level 100 mmol/L (98-107) Carbon Dioxide Level 39 mmol/L (21-32) Anion Gap 3 (6-14) Blood Urea Nitrogen 12 mg/dL (7-20) Creatinine 1.0 mg/dL (0.6-1.0) Estimated GFR (Cockcroft-Gault) 66.9 BUN/Creatinine Ratio 12 (6-20) Glucose Level 216 mg/dL (70-99) Calcium Level 8.3 mg/dL (8.5-10.1) Total Bilirubin 3.4 mg/dL (0.2-1.0) Aspartate Amino Transf (AST/SGOT) 571 U/L (15-37) Alanine Aminotransferase (ALT/SGPT) 930 U/L (14-59) Alkaline Phosphatase 188 U/L (46-116) Total Protein 7.0 g/dL (6.4-8.2) Albumin 3.1 g/dL (3.4-5.0) Albumin/Globulin Ratio 0.8 (1.0-1.7) Lipase 88 U/L (73-393) SARS-CoV-2 Antigen (Rapid) Negative (NEGATIVE) Laboratory Tests Test 02/14/20 21:00 02/14/20 21:30 02/15/20 09:30 Urine Collection Type Unknown Urine Color Mouna Urine Clarity Cloudy Urine pH 7.0 (<5.0-8.0) Urine Specific [place] 1.020 (1.000-1.030) Urine Protein Negative mg/dL (NEG-TRACE) Urine Glucose (UA) Negative mg/dL (NEG) Urine Ketones (Stick) Trace mg/dL (NEG) Urine Blood Trace (NEG) Urine Nitrite Negative (NEG) Urine Bilirubin Moderate (NEG) Urine Urobilinogen Dipstick 4.0 mg/dL (0.2 mg/dL) Urine Leukocyte Esterase Small (NEG) Urine RBC 0 /HPF (0-2) Urine WBC 5-10 /HPF (0-4) Urine Squamous Epithelial Cells Many /LPF Urine Amorphous Sediment Present /HPF Urine Bacteria Moderate /HPF (0-FEW) Urine Mucus Slight /LPF White Blood Count 8.7 x10^3/uL (4.0-11.0) Red Blood Count 5.32 x10^6/uL (3.50-5.40) Hemoglobin 13.6 g/dL (12.0-15.5) Hematocrit 42.5 % (36.0-47.0) Mean Corpuscular Volume 80 fL (79-100) Mean Corpuscular Hemoglobin 26 pg (25-35) Mean Corpuscular Hemoglobin Concent 32 g/dL (31-37) Red Cell Distribution Width 13.4 % (11.5-14.5) Platelet Count 182 x10^3/uL (140-400) Neutrophils (%) (Auto) 70 % (31-73) Lymphocytes (%) (Auto) 18 % (24-48) Monocytes (%) (Auto) 9 % (0-9) Eosinophils (%) (Auto) 2 % (0-3) Basophils (%) (Auto) 1 % (0-3) Neutrophils # (Auto) 6.1 x10^3/uL (1.8-7.7) Lymphocytes # (Auto) 1.6 x10^3/uL (1.0-4.8) Monocytes # (Auto) 0.7 x10^3/uL (0.0-1.1) Eosinophils # (Auto) 0.2 x10^3/uL (0.0-0.7) Basophils # (Auto) 0.1 x10^3/uL (0.0-0.2) Sodium Level 142 mmol/L (136-145) Potassium Level 3.1 mmol/L (3.5-5.1) Chloride Level 100 mmol/L (98-107) Carbon Dioxide Level 39 mmol/L (21-32) Anion Gap 3 (6-14) Blood Urea Nitrogen 12 mg/dL (7-20) Creatinine 1.0 mg/dL (0.6-1.0) Estimated GFR (Cockcroft-Gault) 66.9 BUN/Creatinine Ratio 12 (6-20) Glucose Level 216 mg/dL (70-99) Calcium Level 8.3 mg/dL (8.5-10.1) Total Bilirubin 3.4 mg/dL (0.2-1.0) Aspartate Amino Transf (AST/SGOT) 571 U/L (15-37) Alanine Aminotransferase (ALT/SGPT) 930 U/L (14-59) Alkaline Phosphatase 188 U/L (46-116) Total Protein 7.0 g/dL (6.4-8.2) Albumin 3.1 g/dL (3.4-5.0) Albumin/Globulin Ratio 0.8 (1.0-1.7) Lipase 88 U/L (73-393) SARS-CoV-2 Antigen (Rapid) Negative (NEGATIVE) Assessment/Plan Assessment/Plan cholelithiasis, possible choledocholithiasis Tbili 3.4, elevated LFTs Gi note reviewed will review with NATHANIEL Issa MD 02/15/20 1228: CONSULT Assessment/Plan Assessment/Plan Patient seen and examined by me currently resting fairly comfortably in bed does describe right upper quadrant abdominal pain. Imaging showing dilated common bile duct with gallstones elevated liver enzymes and bilirubin. COVID 19 negative. We will follow-up on labs in the a.m. if improved proceed with laparoscopic cholecystectomy if not would prefer ERCP or MRCP for further evaluation defer to GI. Agree with Denise assessment plan OSEAS DOWD APRN Feb 15, 2020 11:25 NATHANIEL GANN MD Feb 15, 2020 12:28
[2020-02-15 12:21] VITALS: BP 144/51
[2020-02-15 15:49] VITALS: BP 139/46
[2020-02-15] MEDS: ENOXAPARIN 40 MG/0.4 ML SYRINGE. SQ SCH (17:03)
--- NOTE | 2020-02-15 17:31 | NUR ---
SW following. Reviewed chart and discussed with RN. Pt from home alone. Spoke with pt who stated no concerns about returning home at discharge. Pt has Medicaid but stated she does not have enough work hx for Medicare. Pt on room air. Pt on IV Zosyn. PT/OT to evaluate. Pt currently NPO. SW to follow.
[2020-02-15 19:00] VITALS: BP 180/43
[2020-02-15 23:00] VITALS: BP 152/58
[2020-02-16] MEDS: IV NORMAL SALINE 1000ML BAG 1,000 ML IV SCH ×2 (00:18→13:35)
[2020-02-16 05:09] LABS: HEMOGLOBIN A1C 8.1 % (4.8-5.6)
[2020-02-16] MEDS: PIPERACILLIN/TAZOBACTAM 3.375 GM in IV NORMAL SALINE 50ML 50 ML IV SCH ×4 (06:31→23:59)
[2020-02-16 07:00] VITALS: BP 154/60
[2020-02-16 07:55] LABS: ALBUMIN 2.5 g/dL (3.4-5.0); ALBUMIN/GLOBULIN RATIO 0.8 (1.0-1.7); CALCIUM 7.8 mg/dL (8.5-10.1); CREATININE 1.9 mg/dL (0.6-1.0); GFR 31.9; POTASSIUM 3.1 mmol/L (3.5-5.1); TOTAL BILIRUBIN 2.5 mg/dL (0.2-1.0); TOTAL PROTEIN 5.8 g/dL (6.4-8.2)
[2020-02-16 08:50] LABS: BASO # 0.1 x10^3/uL (0.0-0.2); BASO % 1 % (0-3); EOS # 0.2 x10^3/uL (0.0-0.7); EOS % 2 % (0-3); HEMATOCRIT 38.1 % (36.0-47.0); HEMOGLOBIN 12.1 g/dL (12.0-15.5); LYMPH % 27 % (24-48); MEAN CORPUSCULAR HEMOGLOBIN 25 pg (25-35); MEAN CORPUSCULAR HGB CONC 32 g/dL (31-37); MEAN CORPUSCULAR VOLUME 80 fL (79-100); MONO # 0.9 x10^3/uL (0.0-1.1); MONO % 12 % (0-9); NEUT # 4.3 x10^3/uL (1.8-7.7); NEUT % 58 % (31-73); RED BLOOD COUNT 4.77 x10^6/uL (3.50-5.40); WHITE BLOOD COUNT 7.5 x10^3/uL (4.0-11.0)
[2020-02-16 08:55] LABS: PLATELET COUNT 125 x10^3/uL (140-400)
--- NOTE | 2020-02-16 10:30 | PDOC ---
Date of Service: DATE: 02/16/20 TIME: 10:27 Subjective: Subjective: Less pain today, feeling better. Asks about surgery. Objective: Objective: D/w nurse - not sure if plans for OR today. Vital Signs: Vital Signs Date Time Temp Pulse Resp B/P (MAP) Pulse Ox O2 Delivery O2 Flow Rate FiO2 02/16/20 07:00 97.8 53 17 154/60 (91) 98 Room Air 97.8 Labs: Laboratory Tests Test 02/16/20 04:10 White Blood Count 7.5 x10^3/uL Red Blood Count 4.77 x10^6/uL Hemoglobin 12.1 g/dL Hematocrit 38.1 % Mean Corpuscular Volume 80 fL Mean Corpuscular Hemoglobin 25 pg Mean Corpuscular Hemoglobin Concent 32 g/dL Red Cell Distribution Width 14.0 % Platelet Count 125 x10^3/uL Neutrophils (%) (Auto) 58 % Lymphocytes (%) (Auto) 27 % Monocytes (%) (Auto) 12 % Eosinophils (%) (Auto) 2 % Basophils (%) (Auto) 1 % Neutrophils # (Auto) 4.3 x10^3/uL Lymphocytes # (Auto) 2.0 x10^3/uL Monocytes # (Auto) 0.9 x10^3/uL Eosinophils # (Auto) 0.2 x10^3/uL Basophils # (Auto) 0.1 x10^3/uL Sodium Level 146 mmol/L Potassium Level 3.1 mmol/L Chloride Level 108 mmol/L Carbon Dioxide Level 29 mmol/L Anion Gap 9 Blood Urea Nitrogen 16 mg/dL Creatinine 1.9 mg/dL Estimated GFR (Cockcroft-Gault) 31.9 BUN/Creatinine Ratio 8 Glucose Level 103 mg/dL Calcium Level 7.8 mg/dL Total Bilirubin 2.5 mg/dL Aspartate Amino Transf (AST/SGOT) 224 U/L Alanine Aminotransferase (ALT/SGPT) 601 U/L Alkaline Phosphatase 165 U/L Total Protein 5.8 g/dL Albumin 2.5 g/dL Albumin/Globulin Ratio 0.8 URINE CULTURE Final Final Three or more organisms isolated. Results consistent with colonization or contamination during the collection process. PE: GEN: NAD LUNGS: CTAB HEART: RRR ABD: soft, less RUQ/epigastric tenderness NEURO/PSYCH: A & O 3 A/P: Vomiting (resolved - has been NPO), upper abdominal discomfort (better) Abnormal LFTs (improved), thrombocytopenia, hypokalemia, hypocalcemia Dilated CBD, gallstones, fatty liver H/o TIA (ASA held), HTN, HLD, DM COVID negative. -- Cholecystectomy today? Justicifation of Admission Dx: Justifications for Admission: Justification of Admission Dx: Yes BRANDEE HERNANDEZ Feb 16, 2020 10:30
[2020-02-16 10:40] VITALS: BP 177/52
--- NOTE | 2020-02-16 12:27 | PDOC ---
[employer] PROGRESS NOTE Date of Service DOS: DATE: 02/16/20 TIME: 12:15 Chief Complaint Chief Complaint A/P: Nausea and vomiting - likely related to cholecystitis, IV antiemetics, NPO RUQ pain - acute cholecystitis with possible choledocholithiasis. Zosyn q6hrs, consult GI and surgery GLORIA - will monitor renal function, dose zosyn appropriately Diabetes-Type II - sliding scale insulin High Cholesterol - hold statin while NPO H/o TIA - counseled on smoking cessation, glycemic control Smoker - counseled on cessation Bipolar disorder - hold meds while NPO. Can offer IV haldol prn FEN - NPO PPX - lovenox FULL CODE Dispo - inpatient 2 midnights History of Present Illness History of Present Illness Ms Cox is a 65yo F w/ PMHx Arthritis, CVA, Diabetes-Type II, Glaucoma, Hi gh Cholesterol, TIA, smoker, bipolar disorder who comes to the ED with complaints of abdominal pain, nausea and vomiting. She reports that it started on 02/12/2020 she awoke with RUQ and mid back pain while at home. The pain comes and goes, does not radiate into other parts of her abdomen. She began to have some nausea which was followed by vomiting. She continues to move her bowels, but has not been able to tolerate any food. No melena, no hematochezia, the emesis is bilious. Patient denies any change in urination, fever, chills, sweats, cough, change in smell or taste, shortness of breath or chest pain. Labs significant for WBC 8.7, Hb 13.6, platelets 22, NA 142, K3.1, CR 1, glucose 216, bilirubin 3.4, AST 571, ALT 930, alkaline phosphatase 198, albumin 3.1, lipase 88. RUQ US - Stones and sludge within the distention. Measures up to 10.3 cm. Wall thickening up to about 5 mm, Common Bile Duct: Dilated, 7 mm-8mm. Pancreatic duct 4-5 mm. Admitted for further care Cr up to 1.9 today. Feeling better has an appetite. Pain is better. K3.2 Vitals/I&O Vitals/I&O: Vital Signs Date Time Temp Pulse Resp B/P (MAP) Pulse Ox O2 Delivery O2 Flow Rate FiO2 02/16/20 10:40 97.7 58 17 177/52 (93) 98 Room Air 97.7 I & O 02/15/20 02/15/20 02/16/20 15:00 23:00 07:00 Intake Total 50 ml 450 ml Output Total 0 ml Balance 0 ml 50 ml 450 ml Physical Exam General: Alert, Oriented X3, Cooperative Heart: Regular rate, Normal S1, Normal S2 Lungs: Clear Abdomen: Soft, Other (Mild ttp RUQ ) Extremities: No clubbing, No cyanosis Skin: No rashes, No breakdown Labs Labs: Laboratory Tests Test 02/16/20 04:10 White Blood Count 7.5 x10^3/uL (4.0-11.0) Red Blood Count 4.77 x10^6/uL (3.50-5.40) Hemoglobin 12.1 g/dL (12.0-15.5) Hematocrit 38.1 % (36.0-47.0) Mean Corpuscular Volume 80 fL (79-100) Mean Corpuscular Hemoglobin 25 pg (25-35) Mean Corpuscular Hemoglobin Concent 32 g/dL (31-37) Red Cell Distribution Width 14.0 % (11.5-14.5) Platelet Count 125 x10^3/uL (140-400) Neutrophils (%) (Auto) 58 % (31-73) Lymphocytes (%) (Auto) 27 % (24-48) Monocytes (%) (Auto) 12 % (0-9) Eosinophils (%) (Auto) 2 % (0-3) Basophils (%) (Auto) 1 % (0-3) Neutrophils # (Auto) 4.3 x10^3/uL (1.8-7.7) Lymphocytes # (Auto) 2.0 x10^3/uL (1.0-4.8) Monocytes # (Auto) 0.9 x10^3/uL (0.0-1.1) Eosinophils # (Auto) 0.2 x10^3/uL (0.0-0.7) Basophils # (Auto) 0.1 x10^3/uL (0.0-0.2) Sodium Level 146 mmol/L (136-145) Potassium Level 3.1 mmol/L (3.5-5.1) Chloride Level 108 mmol/L (98-107) Carbon Dioxide Level 29 mmol/L (21-32) Anion Gap 9 (6-14) Blood Urea Nitrogen 16 mg/dL (7-20) Creatinine 1.9 mg/dL (0.6-1.0) Estimated GFR (Cockcroft-Gault) 31.9 BUN/Creatinine Ratio 8 (6-20) Glucose Level 103 mg/dL (70-99) Calcium Level 7.8 mg/dL (8.5-10.1) Total Bilirubin 2.5 mg/dL (0.2-1.0) Aspartate Amino Transf (AST/SGOT) 224 U/L (15-37) Alanine Aminotransferase (ALT/SGPT) 601 U/L (14-59) Alkaline Phosphatase 165 U/L (46-116) Total Protein 5.8 g/dL (6.4-8.2) Albumin 2.5 g/dL (3.4-5.0) Albumin/Globulin Ratio 0.8 (1.0-1.7) Assessment and Plan Assessmemt and Plan Problems Medical Problems: (1) Acute cholecystitis Status: Acute (2) Common bile duct stone Status: Acute (3) Nausea & vomiting Status: Acute (4) Right upper quadrant abdominal pain Status: Acute Comment Review of Relevant I have reviewed the following items jose (where applicable) has been applied. Medications: Current Medications Medications (Trade) Dose Ordered Sig/Efren Route PRN Reason Start Time Stop Time Status Last Admin Dose Admin Enoxaparin Sodium (Lovenox 40mg Syringe) 40 mg Q24H SQ 02/15/20 14:00 02/15/20 17:03 Sodium Chloride 1,000 ml @ 75 mls/hr [id number] IV 02/16/20 00:15 02/16/20 00:18 Justicifation of Admission Dx: Justifications for Admission: Justification of Admission Dx: Yes KATHY MADDEN MD Feb 16, 2020 12:26
[2020-02-16] MEDS: POTASSIUM CL 40MEQ D5-0.45NACL 1,000 ML IV SCH (12:46)
[2020-02-16 15:00] VITALS: BP 165/58
[2020-02-16] MEDS: ENOXAPARIN 40 MG/0.4 ML SYRINGE. SQ SCH (15:47)
--- NOTE | 2020-02-16 16:35 | NUR ---
SW following. Reviewed chart and discussed with RN. Pt from home alone. Pt on room air. Coordinated care with Sheng from PT who recommended home independent. Pt will likely discharge home self-care. SW to follow as needed.
--- NOTE | 2020-02-16 17:00 | PDOC ---
SURGICAL PROGRESS NOTE DATE: 02/16/20 TIME: 16:59 Subjective patient feeling much better. Labs improving Vital Signs Vital Signs Date Time Temp Pulse Resp B/P (MAP) Pulse Ox O2 Delivery O2 Flow Rate FiO2 02/16/20 15:00 97.7 58 17 165/58 (93) 97 Room Air 97.7 I&O Intake and Output 02/16/20 07:00 Intake Total 500 ml Output Total 0 ml Balance 500 ml Intake IV Total 500 ml Output Urine Total 0 ml # Voids 2 PATIENT HAS A WALTER: No General: Alert, Oriented X3, Cooperative, mild distress Abdomen: Normal bowel sounds, Soft, Other (mild TTP RUQ) Extremities: No edema Labs Laboratory Tests Test 02/14/20 21:00 02/14/20 21:30 02/15/20 09:30 02/16/20 04:10 Urine Collection Type Unknown Urine Color Mouna Urine Clarity Cloudy Urine pH 7.0 (<5.0-8.0) Urine Specific [place] 1.020 (1.000-1.030) Urine Protein Negative mg/dL (NEG-TRACE) Urine Glucose (UA) Negative mg/dL (NEG) Urine Ketones (Stick) Trace mg/dL (NEG) Urine Blood Trace (NEG) Urine Nitrite Negative (NEG) Urine Bilirubin Moderate (NEG) Urine Urobilinogen Dipstick 4.0 mg/dL (0.2 mg/dL) Urine Leukocyte Esterase Small (NEG) Urine RBC 0 /HPF (0-2) Urine WBC 5-10 /HPF (0-4) Urine Squamous Epithelial Cells Many /LPF Urine Amorphous Sediment Present /HPF Urine Bacteria Moderate /HPF (0-FEW) Urine Mucus Slight /LPF White Blood Count 8.7 x10^3/uL (4.0-11.0) 7.5 x10^3/uL (4.0-11.0) Red Blood Count 5.32 x10^6/uL (3.50-5.40) 4.77 x10^6/uL (3.50-5.40) Hemoglobin 13.6 g/dL (12.0-15.5) 12.1 g/dL (12.0-15.5) Hematocrit 42.5 % (36.0-47.0) 38.1 % (36.0-47.0) Mean Corpuscular Volume 80 fL (79-100) 80 fL (79-100) Mean Corpuscular Hemoglobin 26 pg (25-35) 25 pg (25-35) Mean Corpuscular Hemoglobin Concent 32 g/dL (31-37) 32 g/dL (31-37) Red Cell Distribution Width 13.4 % (11.5-14.5) 14.0 % (11.5-14.5) Platelet Count 182 x10^3/uL (140-400) 125 x10^3/uL (140-400) Neutrophils (%) (Auto) 70 % (31-73) 58 % (31-73) Lymphocytes (%) (Auto) 18 % (24-48) 27 % (24-48) Monocytes (%) (Auto) 9 % (0-9) 12 % (0-9) Eosinophils (%) (Auto) 2 % (0-3) 2 % (0-3) Basophils (%) (Auto) 1 % (0-3) 1 % (0-3) Neutrophils # (Auto) 6.1 x10^3/uL (1.8-7.7) 4.3 x10^3/uL (1.8-7.7) Lymphocytes # (Auto) 1.6 x10^3/uL (1.0-4.8) 2.0 x10^3/uL (1.0-4.8) Monocytes # (Auto) 0.7 x10^3/uL (0.0-1.1) 0.9 x10^3/uL (0.0-1.1) Eosinophils # (Auto) 0.2 x10^3/uL (0.0-0.7) 0.2 x10^3/uL (0.0-0.7) Basophils # (Auto) 0.1 x10^3/uL (0.0-0.2) 0.1 x10^3/uL (0.0-0.2) Sodium Level 142 mmol/L (136-145) 146 mmol/L (136-145) Potassium Level 3.1 mmol/L (3.5-5.1) 3.1 mmol/L (3.5-5.1) Chloride Level 100 mmol/L (98-107) 108 mmol/L (98-107) Carbon Dioxide Level 39 mmol/L (21-32) 29 mmol/L (21-32) Anion Gap 3 (6-14) 9 (6-14) Blood Urea Nitrogen 12 mg/dL (7-20) 16 mg/dL (7-20) Creatinine 1.0 mg/dL (0.6-1.0) 1.9 mg/dL (0.6-1.0) Estimated GFR (Cockcroft-Gault) 66.9 31.9 BUN/Creatinine Ratio 12 (6-20) 8 (6-20) Glucose Level 216 mg/dL (70-99) 103 mg/dL (70-99) Hemoglobin A1c 8.1 % (4.8-5.6) Calcium Level 8.3 mg/dL (8.5-10.1) 7.8 mg/dL (8.5-10.1) Total Bilirubin 3.4 mg/dL (0.2-1.0) 2.5 mg/dL (0.2-1.0) Aspartate Amino Transf (AST/SGOT) 571 U/L (15-37) 224 U/L (15-37) Alanine Aminotransferase (ALT/SGPT) 930 U/L (14-59) 601 U/L (14-59) Alkaline Phosphatase 188 U/L (46-116) 165 U/L (46-116) Total Protein 7.0 g/dL (6.4-8.2) 5.8 g/dL (6.4-8.2) Albumin 3.1 g/dL (3.4-5.0) 2.5 g/dL (3.4-5.0) Albumin/Globulin Ratio 0.8 (1.0-1.7) 0.8 (1.0-1.7) Lipase 88 U/L (73-393) SARS-CoV-2 Antigen (Rapid) Negative (NEGATIVE) Laboratory Tests Test 02/16/20 04:10 White Blood Count 7.5 x10^3/uL (4.0-11.0) Red Blood Count 4.77 x10^6/uL (3.50-5.40) Hemoglobin 12.1 g/dL (12.0-15.5) Hematocrit 38.1 % (36.0-47.0) Mean Corpuscular Volume 80 fL (79-100) Mean Corpuscular Hemoglobin 25 pg (25-35) Mean Corpuscular Hemoglobin Concent 32 g/dL (31-37) Red Cell Distribution Width 14.0 % (11.5-14.5) Platelet Count 125 x10^3/uL (140-400) Neutrophils (%) (Auto) 58 % (31-73) Lymphocytes (%) (Auto) 27 % (24-48) Monocytes (%) (Auto) 12 % (0-9) Eosinophils (%) (Auto) 2 % (0-3) Basophils (%) (Auto) 1 % (0-3) Neutrophils # (Auto) 4.3 x10^3/uL (1.8-7.7) Lymphocytes # (Auto) 2.0 x10^3/uL (1.0-4.8) Monocytes # (Auto) 0.9 x10^3/uL (0.0-1.1) Eosinophils # (Auto) 0.2 x10^3/uL (0.0-0.7) Basophils # (Auto) 0.1 x10^3/uL (0.0-0.2) Sodium Level 146 mmol/L (136-145) Potassium Level 3.1 mmol/L (3.5-5.1) Chloride Level 108 mmol/L (98-107) Carbon Dioxide Level 29 mmol/L (21-32) Anion Gap 9 (6-14) Blood Urea Nitrogen 16 mg/dL (7-20) Creatinine 1.9 mg/dL (0.6-1.0) Estimated GFR (Cockcroft-Gault) 31.9 BUN/Creatinine Ratio 8 (6-20) Glucose Level 103 mg/dL (70-99) Calcium Level 7.8 mg/dL (8.5-10.1) Total Bilirubin 2.5 mg/dL (0.2-1.0) Aspartate Amino Transf (AST/SGOT) 224 U/L (15-37) Alanine Aminotransferase (ALT/SGPT) 601 U/L (14-59) Alkaline Phosphatase 165 U/L (46-116) Total Protein 5.8 g/dL (6.4-8.2) Albumin 2.5 g/dL (3.4-5.0) Albumin/Globulin Ratio 0.8 (1.0-1.7) Problem List Problems Medical Problems: (1) Acute cholecystitis Status: Acute (2) Common bile duct stone Status: Acute (3) Nausea & vomiting Status: Acute (4) Right upper quadrant abdominal pain Status: Acute Assessment/Plan Cholecystitis, plan L/S Cholecystectomy tomorrow 02/16 Justicifation of Admission Dx: Justifications for Admission: Justification of Admission Dx: Yes NATHANIEL GANN MD Feb 16, 2020 17:00
[2020-02-16 19:00] VITALS: BP 175/67
[2020-02-16 23:00] VITALS: BP 150/60
[2020-02-17] VITALS (12 sets, daily range): BP systolic 106–190; BP diastolic 49–78
[2020-02-17] MEDS: POTASSIUM CL 40MEQ D5-0.45NACL 1,000 ML IV SCH (03:04)
[2020-02-17] MEDS: PIPERACILLIN/TAZOBACTAM 3.375 GM in IV NORMAL SALINE 50ML 50 ML IV SCH ×3 (05:56→18:13)
[2020-02-17] MEDS: ENOXAPARIN 40 MG/0.4 ML SYRINGE. SQ SCH ×2 (09:00→21:00)
[2020-02-17 11:17] LABS: ALBUMIN 2.6 g/dL (3.4-5.0); TOTAL BILIRUBIN 2.5 mg/dL (0.2-1.0); TOTAL PROTEIN 5.8 g/dL (6.4-8.2)
--- NOTE | 2020-02-17 11:18 | PDOC ---
Date of Service: DATE: 02/17/20 TIME: 11:09 Subjective: Subjective: Feels fine, still waiting. Objective: Vital Signs: Vital Signs Date Time Temp Pulse Resp B/P (MAP) Pulse Ox O2 Delivery O2 Flow Rate FiO2 02/17/20 07:15 98.4 48 16 160/59 (92) 94 Room Air 98.4 PE: GEN: NAD LUNGS: CTAB HEART: RRR ABD: NABS, S/ND/NT NEURO/PSYCH: A & O 3 A/P: Abd pain, vomiting - resolved Abnormal LFTs (improved) Dilated CBD, gallstones, fatty liver COVID negative -- Plans for cholecystectomy today, will follow. LFTs pending. Justicifation of Admission Dx: Justifications for Admission: Justification of Admission Dx: Yes BRANDEE HERNANDEZ Feb 17, 2020 11:18
[2020-02-17] MEDS ORDERED: IV RINGERS,LACTATED 1000ML 1,000 ML IV SCH (12:06)
[2020-02-17] MEDS ORDERED: PROCHLORPERAZINE 10 MG/2 ML VIAL. IV PRN (12:15)
[2020-02-17] MEDS ORDERED: hydrALAZINE 20 MG/ML VIAL. ONE (12:35)
[2020-02-17] MEDS ORDERED: hydrALAZINE 20 MG/ML VIAL. IVP ONE (12:45)
[2020-02-17] MEDS ORDERED: SURGICEL HEMOSTAT 4X8 EACH. ONE (12:59)
[2020-02-17] MEDS ORDERED: BUPIVACAINE-EPI 0.25%-1:200000 MPF 30 ML VIAL. ONE (12:59)
[2020-02-17] MEDS ORDERED: PROPOFOL 10 MG/ML (20ML) VIAL. IV ONE (13:07)
[2020-02-17] MEDS ORDERED: LIDOCAINE 2% PF 5 ML VIAL. ONE (13:07)
[2020-02-17] MEDS ORDERED: DEXAMETHASONE SOD PHOS 4 MG/ML VIAL ONE (13:10)
[2020-02-17] MEDS ORDERED: DESFLURANE 31 TO 60 MINUTES IH ONE (13:10)
[2020-02-17] MEDS ORDERED: ONDANSETRON PF 4 MG/2 ML VIAL. ONE (13:10)
[2020-02-17] MEDS ORDERED: NEOSTIGMINE METHYLSULFATE 5 MG/5 ML SYRINGE. ONE (13:20)
[2020-02-17] MEDS ORDERED: GLYCOPYRROLATE 1 MG/5 ML VIAL. ONE (13:20)
[2020-02-17] MEDS ORDERED: fentaNYL PF VIAL 100 MCG/2 ML VIAL ONE ×2 (13:23→14:05)
[2020-02-17] MEDS ORDERED: niCARdipine INJ. IV ONE (13:46)
--- NOTE | 2020-02-17 14:04 | PDOC4 ---
Operative Note Operative Note Date: 02/17/2020 at 1401 Preoperative diagnosis: Acute cholecystitis Postoperative diagnosis: Same Procedure: Laparoscopic cholecystectomy Surgeon: Tad Specimen: Gallbladder Dictation: Patient is a 65-year-old female was mated to the hospital with right upper quadrant abdominal pain ultrasound showing gallstones consistent with acute cholecystitis elevated liver enzymes. The procedure of laparoscopic cholecystectomy was explained to the patient detail was benefits were also discussed including bleeding infection injury to intra-abdominal contents possible necessitating further or or open operations alternatives to this procedure also discussed with the patient who seemed to understand and gave both verbal and written consent to have the procedure performed. Patient was taken to the operating room placed in the supine position general anesthesia was initiated once patient was sleeping intubated her abdomen was prepped and draped usual sterile fashion using ChloraPrep. An area just below the umbilicus was injected with quarter percent Marcaine with epinephrine incision was made 11 blade scalpel and a varies needle was placed within the abdomen creating pneumoperitoneum once this complete 11 mm port was placed and a 5 mm camera was placed within the abdomen no other abnormalities were noted a 5 mm port was placed in the epigastrium a 5 mm port was placed in the right midabdomen and a 5 mm port was placed in the right lateral abdomen. The dome of the gallbladder is grasped retracted cephalad the infundibulum the gallbladder is grasped directed laterally exposing the triangle adherent tissues the triangle were taken down exposing the cystic duct. Cystic duct was quite large to large for 5 mm clip so a 12 mm port was placed in the epigastrium and a 10 mm hemo-lock clip was used to clip the cystic duct doubly and transected the cystic artery was right behind the duct at this was clipped with a 5 mm clip and transected the gallbladder is taken off the liver with hook electrocautery placed in Endo Catch bag removed and the umbilicus right upper quadrant is irrigated and suctioned dry hemostasis deemed to be appropriate and the pneumoperitoneum was reduced all ports were removed the fascial defect at the umbilicus was closed with a [id number] Vicryl suture and the skin was reapproximated all port sites for subcuticular Monocryl Mastisol Steri-Strips and island dressings were applied. Patient was awakened and extubated in the operating room taken to recovery in stable condition all sponge instrument needle counts listed as correct. Estimated blood loss 30 mL NATHANIEL GANN MD Feb 17, 2020 14:04
[2020-02-17] MEDS ORDERED: fentaNYL PF VIAL 100 MCG/2 ML VIAL IVP ONE (14:45)
--- NOTE | 2020-02-17 15:00 | PDOC ---
[facility] PROGRESS NOTE Date of Service DOS: DATE: 02/17/20 TIME: 14:59 Chief Complaint Chief Complaint A/P: Nausea and vomiting - likely related to cholecystitis, IV antiemetics, NPO RUQ pain - acute cholecystitis with possible choledocholithiasis. Zosyn q6hrs, consult GI and surgery GLORIA - will monitor renal function, dose zosyn appropriately Diabetes-Type II - sliding scale insulin High Cholesterol - hold statin while NPO H/o TIA - counseled on smoking cessation, glycemic control Smoker - counseled on cessation Bipolar disorder - hold meds while NPO. Can offer IV haldol prn FEN - NPO PPX - lovenox FULL CODE Dispo - inpatient 2 midnights History of Present Illness History of Present Illness Ms Cox is a 65yo F w/ PMHx Arthritis, CVA, Diabetes-Type II, Glaucoma, Hi gh Cholesterol, TIA, smoker, bipolar disorder who comes to the ED with complaints of abdominal pain, nausea and vomiting. She reports that it started on 02/12/2020 she awoke with RUQ and mid back pain while at home. The pain comes and goes, does not radiate into other parts of her abdomen. She began to have some nausea which was followed by vomiting. She continues to move her bowels, but has not been able to tolerate any food. No melena, no hematochezia, the emesis is bilious. Patient denies any change in urination, fever, chills, sweats, cough, change in smell or taste, shortness of breath or chest pain. Labs significant for WBC 8.7, Hb 13.6, platelets 22, NA 142, K3.1, CR 1, glucose 216, bilirubin 3.4, AST 571, ALT 930, alkaline phosphatase 198, albumin 3.1, lipase 88. RUQ US - Stones and sludge within the distention. Measures up to 10.3 cm. Wall thickening up to about 5 mm, Common Bile Duct: Dilated, 7 mm-8mm. Pancreatic duct 4-5 mm. Admitted for further care 02/15: Cr up to 1.9 today. Feeling better has an appetite. Pain is better. K3.2 LFTs improved. She feels better. NPO for surgery, seen pre-op. Vitals/I&O Vitals/I&O: Vital Signs Date Time Temp Pulse Resp B/P (MAP) Pulse Ox O2 Delivery O2 Flow Rate FiO2 02/17/20 14:45 15 94 Room Air 02/17/20 14:30 97.8 76 148/57 97.8 I & O 02/16/20 02/16/20 02/17/20 15:00 23:00 07:00 Intake Total 50 ml 300 ml Balance 50 ml 300 ml Physical Exam General: Alert, Oriented X3, Cooperative, mild distress Heart: Regular rate, Normal S1, Normal S2 Lungs: Clear Abdomen: Normal bowel sounds, Soft, Other (mild TTP RUQ) Extremities: No edema Skin: No rashes, No breakdown Labs Labs: Laboratory Tests Test 02/17/20 10:40 Total Bilirubin 2.5 mg/dL (0.2-1.0) Direct Bilirubin 2.0 mg/dL (0.0-0.2) Aspartate Amino Transf (AST/SGOT) 103 U/L (15-37) Alanine Aminotransferase (ALT/SGPT) 430 U/L (14-59) Alkaline Phosphatase 188 U/L (46-116) Total Protein 5.8 g/dL (6.4-8.2) Albumin 2.6 g/dL (3.4-5.0) Assessment and Plan Assessmemt and Plan Problems Medical Problems: (1) Acute cholecystitis Status: Acute (2) Common bile duct stone Status: Acute (3) Nausea & vomiting Status: Acute (4) Right upper quadrant abdominal pain Status: Acute Comment Review of Relevant I have reviewed the following items jose (where applicable) has been applied. Medications: Current Medications Medications (Trade) Dose Ordered Sig/Efren Route PRN Reason Start Time Stop Time Status Last Admin Dose Admin Hydralazine HCl (Apresoline Inj) 10 mg 1X ONCE IVP 02/17/20 12:45 02/17/20 12:46 DC 02/17/20 12:39 Bupivacaine HCl/ Epinephrine Bitart (Sensorcaine-Epi 0.25%-1:021476 Mpf) 30 ml STK-MED ONCE .ROUTE 02/17/20 12:59 02/17/20 12:59 DC 02/17/20 13:26 Fentanyl Citrate (Fentanyl 2ml Vial) 100 mcg 1X ONCE IVP 02/17/20 14:45 02/17/20 14:46 DC 02/17/20 14:45 Justicifation of Admission Dx: Justifications for Admission: Justification of Admission Dx: Yes KATHY MADDEN MD Feb 17, 2020 14:59
--- NOTE | 2020-02-17 17:16 | NUR ---
SW following. Reviewed chart and discussed with RN. Pt went for surgery today. SW following but no anticipated SW needs at discharge.
[2020-02-17] MEDS: oxyCODONE/APAP 5/325 1 TAB TABLET PO PRN (18:39)
[2020-02-17] MEDS ORDERED: hydrALAZINE 20 MG/ML VIAL. IVP PRN (18:45)
--- NOTE | 2020-02-17 22:19 | NUR ---
Held lovenox per pharmacy.
[2020-02-18] MEDS: PIPERACILLIN/TAZOBACTAM 3.375 GM in IV NORMAL SALINE 50ML 50 ML IV SCH ×4 (00:36→20:43)
[2020-02-18] MEDS: POTASSIUM CL 40MEQ D5-0.45NACL 1,000 ML IV SCH ×2 (00:36→04:15)
[2020-02-18 03:00] VITALS: BP 119/32
[2020-02-18] MEDS: oxyCODONE/APAP 5/325 1 TAB TABLET PO PRN (06:38)
[2020-02-18 07:00] VITALS: BP 149/42
--- NOTE | 2020-02-18 09:17 | PDOC ---
[facility] PROGRESS NOTE Date of Service DOS: DATE: 02/18/20 TIME: 09:16 Chief Complaint Chief Complaint A/P: Nausea and vomiting - likely related to cholecystitis, IV antiemetics, NPO RUQ pain - acute cholecystitis with possible choledocholithiasis. Zosyn q6hrs, consult GI and surgery GLORIA - will monitor renal function, dose zosyn appropriately Diabetes-Type II - sliding scale insulin High Cholesterol - hold statin while NPO H/o TIA - counseled on smoking cessation, glycemic control Smoker - counseled on cessation Bipolar disorder - hold meds while NPO. Can offer IV haldol prn FEN - NPO PPX - lovenox FULL CODE Dispo - inpatient 2 midnights History of Present Illness History of Present Illness Ms Cox is a 65yo F w/ PMHx Arthritis, CVA, Diabetes-Type II, Glaucoma, Hi gh Cholesterol, TIA, smoker, bipolar disorder who comes to the ED with complaints of abdominal pain, nausea and vomiting. She reports that it started on 02/12/2020 she awoke with RUQ and mid back pain while at home. The pain comes and goes, does not radiate into other parts of her abdomen. She began to have some nausea which was followed by vomiting. She continues to move her bowels, but has not been able to tolerate any food. No melena, no hematochezia, the emesis is bilious. Patient denies any change in urination, fever, chills, sweats, cough, change in smell or taste, shortness of breath or chest pain. Labs significant for WBC 8.7, Hb 13.6, platelets 22, NA 142, K3.1, CR 1, glucose 216, bilirubin 3.4, AST 571, ALT 930, alkaline phosphatase 198, albumin 3.1, lipase 88. RUQ US - Stones and sludge within the distention. Measures up to 10.3 cm. Wall thickening up to about 5 mm, Common Bile Duct: Dilated, 7 mm-8mm. Pancreatic duct 4-5 mm. Admitted for further care 02/15: Cr up to 1.9 today. Feeling better has an appetite. Pain is better. K3.2 02/16: LFTs improved. She feels better. NPO for surgery, seen pre-op. Surgery without complications, did need larger cystic duct clip. Labs improved. Cr 1.5. She really wants to leave to live with her son. A1c 8.1. Has d/w to stay for likely MRCP. Vitals/I&O Vitals/I&O: Vital Signs Date Time Temp Pulse Resp B/P (MAP) Pulse Ox O2 Delivery O2 Flow Rate FiO2 02/18/20 07:38 20 93 Room Air 02/18/20 07:00 97.3 63 149/42 (77) 97.3 I & O 02/17/20 02/17/20 02/18/20 15:00 23:00 07:00 Intake Total 750 ml Output Total 30 ml 0 ml 0 ml Balance 720 ml 0 ml 0 ml Physical Exam General: Alert, Oriented X3, Cooperative, mild distress Heart: Regular rate, Normal S1, Normal S2 Lungs: Clear Abdomen: Normal bowel sounds, Soft, Other (mild TTP RUQ) Extremities: No edema Skin: No rashes, No breakdown Labs Labs: Laboratory Tests Test 02/17/20 10:40 Total Bilirubin 2.5 mg/dL (0.2-1.0) Direct Bilirubin 2.0 mg/dL (0.0-0.2) Aspartate Amino Transf (AST/SGOT) 103 U/L (15-37) Alanine Aminotransferase (ALT/SGPT) 430 U/L (14-59) Alkaline Phosphatase 188 U/L (46-116) Total Protein 5.8 g/dL (6.4-8.2) Albumin 2.6 g/dL (3.4-5.0) Assessment and Plan Assessmemt and Plan Problems Medical Problems: (1) Acute cholecystitis Status: Acute (2) Common bile duct stone Status: Acute (3) Nausea & vomiting Status: Acute (4) Right upper quadrant abdominal pain Status: Acute Comment Review of Relevant I have reviewed the following items jose (where applicable) has been applied. Medications: Current Medications Medications (Trade) Dose Ordered Sig/Efren Route PRN Reason Start Time Stop Time Status Last Admin Dose Admin Hydralazine HCl (Apresoline Inj) 10 mg 1X ONCE IVP 02/17/20 12:45 02/17/20 12:46 DC 02/17/20 12:39 Bupivacaine HCl/ Epinephrine Bitart (Sensorcaine-Epi 0.25%-1:896679 Mpf) 30 ml STK-MED ONCE .ROUTE 02/17/20 12:59 02/17/20 12:59 DC 02/17/20 13:26 Oxycodone/ Acetaminophen (Percocet 5/325) 1 tab PRN Q4HRS PRN PO PAIN 02/17/20 14:15 02/18/20 06:38 Fentanyl Citrate (Fentanyl 2ml Vial) 100 mcg 1X ONCE IVP 02/17/20 14:45 02/17/20 14:46 DC 02/17/20 14:45 Justicifation of Admission Dx: Justifications for Admission: Justification of Admission Dx: Yes KATHY MADDEN MD Feb 18, 2020 09:17
[2020-02-18] MEDS: ENOXAPARIN 40 MG/0.4 ML SYRINGE. SQ SCH ×2 (09:37→20:46)
--- NOTE | 2020-02-18 09:47 | PDOC ---
SURGICAL PROGRESS NOTE DATE: 02/18/20 TIME: 09:46 Subjective Patient doing quite well denies any abdominal pain tolerating diet Vital Signs Vital Signs Date Time Temp Pulse Resp B/P (MAP) Pulse Ox O2 Delivery O2 Flow Rate FiO2 02/18/20 08:00 Room Air 02/18/20 07:38 20 93 02/18/20 07:00 97.3 63 149/42 (77) 97.3 I&O Intake and Output 02/18/20 07:00 Intake Total 750 ml Output Total 30 ml Balance 720 ml IV Total 750 ml Output Urine Total 0 ml Estimated Blood Loss 30 ml # Voids 3 PATIENT HAS A WALTER: No General: Alert, Oriented X3, Cooperative, mild distress Abdomen: Normal bowel sounds, Soft, Other (Mild incisional tenderness) Labs Laboratory Tests Test 02/17/20 10:40 Total Bilirubin 2.5 mg/dL (0.2-1.0) Direct Bilirubin 2.0 mg/dL (0.0-0.2) Aspartate Amino Transf (AST/SGOT) 103 U/L (15-37) Alanine Aminotransferase (ALT/SGPT) 430 U/L (14-59) Alkaline Phosphatase 188 U/L (46-116) Total Protein 5.8 g/dL (6.4-8.2) Albumin 2.6 g/dL (3.4-5.0) Laboratory Tests Test 02/17/20 10:40 Total Bilirubin 2.5 mg/dL (0.2-1.0) Direct Bilirubin 2.0 mg/dL (0.0-0.2) Aspartate Amino Transf (AST/SGOT) 103 U/L (15-37) Alanine Aminotransferase (ALT/SGPT) 430 U/L (14-59) Alkaline Phosphatase 188 U/L (46-116) Total Protein 5.8 g/dL (6.4-8.2) Albumin 2.6 g/dL (3.4-5.0) Problem List Problems Medical Problems: (1) Acute cholecystitis Status: Acute (2) Common bile duct stone Status: Acute (3) Nausea & vomiting Status: Acute (4) Right upper quadrant abdominal pain Status: Acute Assessment/Plan Status post laparoscopic cholecystectomy appears to be doing quite well. Liver enzymes appear to be improving bilirubin still at 2.1 other liver enzymes improving Patient clinically doing quite well stable from surgical standpoint Follow-up Dr. Gann in 2 weeks maintain low-fat diet no lifting more than 20 pounds Justicifation of Admission Dx: Justifications for Admission: Justification of Admission Dx: Yes NATHANIEL GANN MD Feb 18, 2020 09:47
[2020-02-18 09:51] LABS: BASO # 0.1 x10^3/uL (0.0-0.2); BASO % 1 % (0-3); EOS % 0 % (0-3); HEMATOCRIT 36.2 % (36.0-47.0); HEMOGLOBIN 11.6 g/dL (12.0-15.5); LYMPH # 1.5 x10^3/uL (1.0-4.8); LYMPH % 17 % (24-48); MEAN CORPUSCULAR HEMOGLOBIN 26 pg (25-35); MEAN CORPUSCULAR HGB CONC 32 g/dL (31-37); MEAN CORPUSCULAR VOLUME 81 fL (79-100); MONO % 11 % (0-9); NEUT # 6.4 x10^3/uL (1.8-7.7); NEUT % 71 % (31-73); RED BLOOD COUNT 4.49 x10^6/uL (3.50-5.40); RED CELL DISTRIBUTION WIDTH 13.9 % (11.5-14.5)
[2020-02-18 09:58] LABS: PLATELET COUNT 118 x10^3/uL (140-400)
[2020-02-18 10:07] LABS: ALBUMIN 2.4 g/dL (3.4-5.0); ALBUMIN/GLOBULIN RATIO 0.7 (1.0-1.7); CALCIUM 8.2 mg/dL (8.5-10.1); CREATININE 1.5 mg/dL (0.6-1.0); GFR 41.9; POTASSIUM 4.2 mmol/L (3.5-5.1); TOTAL BILIRUBIN 3.7 mg/dL (0.2-1.0); TOTAL PROTEIN 5.9 g/dL (6.4-8.2)
--- NOTE | 2020-02-18 10:36 | PDOC ---
Date of Service: DATE: 02/18/20 TIME: 10:34 Subjective: Subjective: Abdomen is sore - different pain than before surgery. Tolerating diet. Passing gas and a little stool. Objective: Vital Signs: Vital Signs Date Time Temp Pulse Resp B/P (MAP) Pulse Ox O2 Delivery O2 Flow Rate FiO2 02/18/20 08:00 Room Air 02/18/20 07:38 20 93 02/18/20 07:00 97.3 63 149/42 (77) 97.3 Labs: Laboratory Tests Test 02/17/20 10:40 02/18/20 09:30 Total Bilirubin 2.5 mg/dL 3.7 mg/dL Direct Bilirubin 2.0 mg/dL Aspartate Amino Transf (AST/SGOT) 103 U/L 127 U/L Alanine Aminotransferase (ALT/SGPT) 430 U/L 344 U/L Alkaline Phosphatase 188 U/L 159 U/L Total Protein 5.8 g/dL 5.9 g/dL Albumin 2.6 g/dL 2.4 g/dL White Blood Count 9.0 x10^3/uL Red Blood Count 4.49 x10^6/uL Hemoglobin 11.6 g/dL Hematocrit 36.2 % Mean Corpuscular Volume 81 fL Mean Corpuscular Hemoglobin 26 pg Mean Corpuscular Hemoglobin Concent 32 g/dL Red Cell Distribution Width 13.9 % Platelet Count 118 x10^3/uL Neutrophils (%) (Auto) 71 % Lymphocytes (%) (Auto) 17 % Monocytes (%) (Auto) 11 % Eosinophils (%) (Auto) 0 % Basophils (%) (Auto) 1 % Neutrophils # (Auto) 6.4 x10^3/uL Lymphocytes # (Auto) 1.5 x10^3/uL Monocytes # (Auto) 1.0 x10^3/uL Eosinophils # (Auto) 0.0 x10^3/uL Basophils # (Auto) 0.1 x10^3/uL Sodium Level 143 mmol/L Potassium Level 4.2 mmol/L Chloride Level 108 mmol/L Carbon Dioxide Level 27 mmol/L Anion Gap 8 Blood Urea Nitrogen 16 mg/dL Creatinine 1.5 mg/dL Estimated GFR (Cockcroft-Gault) 41.9 BUN/Creatinine Ratio 11 Glucose Level 181 mg/dL Calcium Level 8.2 mg/dL Albumin/Globulin Ratio 0.7 PE: GEN: NAD LUNGS: CTAB HEART: RRR ABD: quiet, soft, RUQ discomfort (mild) NEURO/PSYCH: A & O 3 A/P: Symptomatic cholelithiasis - s/p cholecystectomy Abnormal LFTs -fluctuating Dilated CBD fatty liver COVID negative -- Reviewed labs w/ Dr. Gomez - monitor, consider MRCP if remain elevated. Justicifation of Admission Dx: Justifications for Admission: Justification of Admission Dx: Yes BRANDEE HERNANDEZ Feb 18, 2020 10:36
[2020-02-18 11:00] VITALS: BP 154/54
[2020-02-18] MEDS ORDERED: SITA100T PO (12:26)
[2020-02-18] MEDS ORDERED: EMPA10TA PO (12:26)
[2020-02-18] MEDS ORDERED: HYDR-3164 PO (12:26)
[2020-02-18 15:00] VITALS: BP 148/46
--- NOTE | 2020-02-18 16:53 | NUR ---
SW following. No anticipated SW needs. Pt plans to discharge home with son. Possible MRCP.
[2020-02-18 19:00] VITALS: BP 135/60
[2020-02-18 23:00] VITALS: BP 122/43
[2020-02-19] MEDS: PIPERACILLIN/TAZOBACTAM 3.375 GM in IV NORMAL SALINE 50ML 50 ML IV SCH ×3 (00:54→12:00)
[2020-02-19 03:00] VITALS: BP 125/40
[2020-02-19 05:06] LABS: BASO # 0.1 x10^3/uL (0.0-0.2); BASO % 1 % (0-3); EOS # 0.1 x10^3/uL (0.0-0.7); EOS % 2 % (0-3); HEMATOCRIT 33.8 % (36.0-47.0); LYMPH # 2.1 x10^3/uL (1.0-4.8); LYMPH % 35 % (24-48); MEAN CORPUSCULAR HEMOGLOBIN 26 pg (25-35); MEAN CORPUSCULAR HGB CONC 32 g/dL (31-37); MEAN CORPUSCULAR VOLUME 80 fL (79-100); MONO # 0.6 x10^3/uL (0.0-1.1); MONO % 10 % (0-9); NEUT # 3.2 x10^3/uL (1.8-7.7); NEUT % 53 % (31-73); PLATELET COUNT 132 x10^3/uL (140-400); RED BLOOD COUNT 4.21 x10^6/uL (3.50-5.40); RED CELL DISTRIBUTION WIDTH 14.1 % (11.5-14.5)
[2020-02-19 05:39] LABS: ALBUMIN 2.3 g/dL (3.4-5.0); DIRECT BILIRUBIN 1.3 mg/dL (0.0-0.2); TOTAL BILIRUBIN 1.5 mg/dL (0.2-1.0); TOTAL PROTEIN 5.2 g/dL (6.4-8.2)
[2020-02-19 05:42] LABS: CALCIUM 7.8 mg/dL (8.5-10.1); CREATININE 1.5 mg/dL (0.6-1.0); GFR 41.9; POTASSIUM 3.8 mmol/L (3.5-5.1)
[2020-02-19 05:43] LABS: CHOLESTEROL/HDL RATIO 3.8
[2020-02-19 07:37] VITALS: BP 160/51
[2020-02-19] MEDS: ENOXAPARIN 40 MG/0.4 ML SYRINGE. SQ SCH (08:25)
[2020-02-19 11:43] VITALS: BP 163/61
--- NOTE | 2020-02-19 11:56 | PDOC ---
[facility] PROGRESS NOTE Date of Service DOS: DATE: 02/19/20 TIME: 11:55 Chief Complaint Chief Complaint A/P: Nausea and vomiting - likely related to cholecystitis, IV antiemetics, NPO RUQ pain - acute cholecystitis with possible choledocholithiasis. Zosyn q6hrs, consult GI and surgery GLORIA - will monitor renal function, dose zosyn appropriately Diabetes-Type II - sliding scale insulin High Cholesterol - hold statin while NPO H/o TIA - counseled on smoking cessation, glycemic control Smoker - counseled on cessation Bipolar disorder - hold meds while NPO. Can offer IV haldol prn FEN - NPO PPX - lovenox FULL CODE Dispo - inpatient 2 midnights History of Present Illness History of Present Illness Ms Cox is a 65yo F w/ PMHx Arthritis, CVA, Diabetes-Type II, Glaucoma, Hi gh Cholesterol, TIA, smoker, bipolar disorder who comes to the ED with complaints of abdominal pain, nausea and vomiting. She reports that it started on 02/12/2020 she awoke with RUQ and mid back pain while at home. The pain comes and goes, does not radiate into other parts of her abdomen. She began to have some nausea which was followed by vomiting. She continues to move her bowels, but has not been able to tolerate any food. No melena, no hematochezia, the emesis is bilious. Patient denies any change in urination, fever, chills, sweats, cough, change in smell or taste, shortness of breath or chest pain. Labs significant for WBC 8.7, Hb 13.6, platelets 22, NA 142, K3.1, CR 1, glucose 216, bilirubin 3.4, AST 571, ALT 930, alkaline phosphatase 198, albumin 3.1, lipase 88. RUQ US - Stones and sludge within the distention. Measures up to 10.3 cm. Wall thickening up to about 5 mm, Common Bile Duct: Dilated, 7 mm-8mm. Pancreatic duct 4-5 mm. Admitted for further care 02/15: Cr up to 1.9 today. Feeling better has an appetite. Pain is better. K3.2 02/16: LFTs improved. She feels better. NPO for surgery, seen pre-op. Surgery without complications, did need larger cystic duct clip. 02/17: Labs improved. Cr 1.5. She really wants to leave to live with her son. A1c 8.1. Has d/w to stay for LFT monitoring, if worse would MRCP. LFTs and bilirubin decreased today. Pain is resolved. No nausea she is tolerating p.o. well. She is amenable to taking oral diabetic agents but tells me she is "allergic" to insulin and is 100% adamantly opposed to taking it. She will have GI and surgery follow-up. Vitals/I&O Vitals/I&O: Vital Signs Date Time Temp Pulse Resp B/P (MAP) Pulse Ox O2 Delivery O2 Flow Rate FiO2 02/19/20 11:43 98.8 62 17 163/61 (95) 98 Room Air 98.8 I & O 02/18/20 02/18/20 02/19/20 15:00 23:00 07:00 Intake Total 120 ml 300 ml 180 ml Balance 120 ml 300 ml 180 ml Physical Exam General: Alert, Oriented X3, Cooperative, mild distress Heart: Regular rate, Normal S1, Normal S2 Lungs: Clear Abdomen: Normal bowel sounds, Soft, Other (Mild incisional tenderness) Extremities: No edema Skin: No rashes, No breakdown Labs Labs: Laboratory Tests Test 02/19/20 04:38 White Blood Count 6.0 x10^3/uL (4.0-11.0) Red Blood Count 4.21 x10^6/uL (3.50-5.40) Hemoglobin 11.0 g/dL (12.0-15.5) Hematocrit 33.8 % (36.0-47.0) Mean Corpuscular Volume 80 fL (79-100) Mean Corpuscular Hemoglobin 26 pg (25-35) Mean Corpuscular Hemoglobin Concent 32 g/dL (31-37) Red Cell Distribution Width 14.1 % (11.5-14.5) Platelet Count 132 x10^3/uL (140-400) Neutrophils (%) (Auto) 53 % (31-73) Lymphocytes (%) (Auto) 35 % (24-48) Monocytes (%) (Auto) 10 % (0-9) Eosinophils (%) (Auto) 2 % (0-3) Basophils (%) (Auto) 1 % (0-3) Neutrophils # (Auto) 3.2 x10^3/uL (1.8-7.7) Lymphocytes # (Auto) 2.1 x10^3/uL (1.0-4.8) Monocytes # (Auto) 0.6 x10^3/uL (0.0-1.1) Eosinophils # (Auto) 0.1 x10^3/uL (0.0-0.7) Basophils # (Auto) 0.1 x10^3/uL (0.0-0.2) Sodium Level 143 mmol/L (136-145) Potassium Level 3.8 mmol/L (3.5-5.1) Chloride Level 109 mmol/L (98-107) Carbon Dioxide Level 27 mmol/L (21-32) Anion Gap 7 (6-14) Blood Urea Nitrogen 17 mg/dL (7-20) Creatinine 1.5 mg/dL (0.6-1.0) Estimated GFR (Cockcroft-Gault) 41.9 Glucose Level 128 mg/dL (70-99) Calcium Level 7.8 mg/dL (8.5-10.1) Total Bilirubin 1.5 mg/dL (0.2-1.0) Direct Bilirubin 1.3 mg/dL (0.0-0.2) Aspartate Amino Transf (AST/SGOT) 118 U/L (15-37) Alanine Aminotransferase (ALT/SGPT) 315 U/L (14-59) Alkaline Phosphatase 171 U/L (46-116) Total Protein 5.2 g/dL (6.4-8.2) Albumin 2.3 g/dL (3.4-5.0) Triglycerides Level 74 mg/dL (0-150) Cholesterol Level 129 mg/dL (0-200) LDL Cholesterol, Calculated 80 mg/dL (0-100) VLDL Cholesterol, Calculated 15 mg/dL (0-40) Non-HDL Cholesterol Calculated 95 mg/dL (0-129) HDL Cholesterol 34 mg/dL (40-60) Cholesterol/HDL Ratio 3.8 Assessment and Plan Assessmemt and Plan Problems Medical Problems: (1) Acute cholecystitis Status: Acute (2) Common bile duct stone Status: Acute (3) Nausea & vomiting Status: Acute (4) Right upper quadrant abdominal pain Status: Acute Comment Review of Relevant I have reviewed the following items jose (where applicable) has been applied. Justicifation of Admission Dx: Justifications for Admission: Justification of Admission Dx: Yes KATHY MADDEN MD Feb 19, 2020 11:56
--- NOTE | 2020-02-19 11:58 | PDOC3 ---
Discharge Summary Visit Information Date of Admission: Feb 15, 2020 Date of Discharge: Feb 19, 2020 Admitting Diagnosis: Acute cholecystitis Final Diagnosis Problems Medical Problems: (1) Acute cholecystitis Status: Acute (2) Common bile duct stone Status: Acute (3) Nausea & vomiting Status: Acute (4) Right upper quadrant abdominal pain Status: Acute Brief Hospital Course Allergies Allergies Coded Allergies Type Severity Reaction Last Updated Verified No Known Drug Allergies 02/19/14 No Vital Signs Vital Signs Date Time Temp Pulse Resp B/P (MAP) Pulse Ox O2 Delivery O2 Flow Rate FiO2 02/19/20 11:43 98.8 62 17 163/61 (95) 98 Room Air 98.8 Lab Results Laboratory Tests Test 02/18/20 09:30 02/19/20 04:38 White Blood Count 9.0 x10^3/uL (4.0-11.0) 6.0 x10^3/uL (4.0-11.0) Red Blood Count 4.49 x10^6/uL (3.50-5.40) 4.21 x10^6/uL (3.50-5.40) Hemoglobin 11.6 g/dL (12.0-15.5) 11.0 g/dL (12.0-15.5) Hematocrit 36.2 % (36.0-47.0) 33.8 % (36.0-47.0) Mean Corpuscular Volume 81 fL (79-100) 80 fL (79-100) Mean Corpuscular Hemoglobin 26 pg (25-35) 26 pg (25-35) Mean Corpuscular Hemoglobin Concent 32 g/dL (31-37) 32 g/dL (31-37) Red Cell Distribution Width 13.9 % (11.5-14.5) 14.1 % (11.5-14.5) Platelet Count 118 x10^3/uL (140-400) 132 x10^3/uL (140-400) Neutrophils (%) (Auto) 71 % (31-73) 53 % (31-73) Lymphocytes (%) (Auto) 17 % (24-48) 35 % (24-48) Monocytes (%) (Auto) 11 % (0-9) 10 % (0-9) Eosinophils (%) (Auto) 0 % (0-3) 2 % (0-3) Basophils (%) (Auto) 1 % (0-3) 1 % (0-3) Neutrophils # (Auto) 6.4 x10^3/uL (1.8-7.7) 3.2 x10^3/uL (1.8-7.7) Lymphocytes # (Auto) 1.5 x10^3/uL (1.0-4.8) 2.1 x10^3/uL (1.0-4.8) Monocytes # (Auto) 1.0 x10^3/uL (0.0-1.1) 0.6 x10^3/uL (0.0-1.1) Eosinophils # (Auto) 0.0 x10^3/uL (0.0-0.7) 0.1 x10^3/uL (0.0-0.7) Basophils # (Auto) 0.1 x10^3/uL (0.0-0.2) 0.1 x10^3/uL (0.0-0.2) Sodium Level 143 mmol/L (136-145) 143 mmol/L (136-145) Potassium Level 4.2 mmol/L (3.5-5.1) 3.8 mmol/L (3.5-5.1) Chloride Level 108 mmol/L (98-107) 109 mmol/L (98-107) Carbon Dioxide Level 27 mmol/L (21-32) 27 mmol/L (21-32) Anion Gap 8 (6-14) 7 (6-14) Blood Urea Nitrogen 16 mg/dL (7-20) 17 mg/dL (7-20) Creatinine 1.5 mg/dL (0.6-1.0) 1.5 mg/dL (0.6-1.0) Estimated GFR (Cockcroft-Gault) 41.9 41.9 BUN/Creatinine Ratio 11 (6-20) Glucose Level 181 mg/dL (70-99) 128 mg/dL (70-99) Calcium Level 8.2 mg/dL (8.5-10.1) 7.8 mg/dL (8.5-10.1) Total Bilirubin 3.7 mg/dL (0.2-1.0) 1.5 mg/dL (0.2-1.0) Aspartate Amino Transf (AST/SGOT) 127 U/L (15-37) 118 U/L (15-37) Alanine Aminotransferase (ALT/SGPT) 344 U/L (14-59) 315 U/L (14-59) Alkaline Phosphatase 159 U/L (46-116) 171 U/L (46-116) Total Protein 5.9 g/dL (6.4-8.2) 5.2 g/dL (6.4-8.2) Albumin 2.4 g/dL (3.4-5.0) 2.3 g/dL (3.4-5.0) Albumin/Globulin Ratio 0.7 (1.0-1.7) Direct Bilirubin 1.3 mg/dL (0.0-0.2) Triglycerides Level 74 mg/dL (0-150) Cholesterol Level 129 mg/dL (0-200) LDL Cholesterol, Calculated 80 mg/dL (0-100) VLDL Cholesterol, Calculated 15 mg/dL (0-40) Non-HDL Cholesterol Calculated 95 mg/dL (0-129) HDL Cholesterol 34 mg/dL (40-60) Cholesterol/HDL Ratio 3.8 Laboratory Tests Test 02/19/20 04:38 White Blood Count 6.0 x10^3/uL (4.0-11.0) Red Blood Count 4.21 x10^6/uL (3.50-5.40) Hemoglobin 11.0 g/dL (12.0-15.5) Hematocrit 33.8 % (36.0-47.0) Mean Corpuscular Volume 80 fL (79-100) Mean Corpuscular Hemoglobin 26 pg (25-35) Mean Corpuscular Hemoglobin Concent 32 g/dL (31-37) Red Cell Distribution Width 14.1 % (11.5-14.5) Platelet Count 132 x10^3/uL (140-400) Neutrophils (%) (Auto) 53 % (31-73) Lymphocytes (%) (Auto) 35 % (24-48) Monocytes (%) (Auto) 10 % (0-9) Eosinophils (%) (Auto) 2 % (0-3) Basophils (%) (Auto) 1 % (0-3) Neutrophils # (Auto) 3.2 x10^3/uL (1.8-7.7) Lymphocytes # (Auto) 2.1 x10^3/uL (1.0-4.8) Monocytes # (Auto) 0.6 x10^3/uL (0.0-1.1) Eosinophils # (Auto) 0.1 x10^3/uL (0.0-0.7) Basophils # (Auto) 0.1 x10^3/uL (0.0-0.2) Sodium Level 143 mmol/L (136-145) Potassium Level 3.8 mmol/L (3.5-5.1) Chloride Level 109 mmol/L (98-107) Carbon Dioxide Level 27 mmol/L (21-32) Anion Gap 7 (6-14) Blood Urea Nitrogen 17 mg/dL (7-20) Creatinine 1.5 mg/dL (0.6-1.0) Estimated GFR (Cockcroft-Gault) 41.9 Glucose Level 128 mg/dL (70-99) Calcium Level 7.8 mg/dL (8.5-10.1) Total Bilirubin 1.5 mg/dL (0.2-1.0) Direct Bilirubin 1.3 mg/dL (0.0-0.2) Aspartate Amino Transf (AST/SGOT) 118 U/L (15-37) Alanine Aminotransferase (ALT/SGPT) 315 U/L (14-59) Alkaline Phosphatase 171 U/L (46-116) Total Protein 5.2 g/dL (6.4-8.2) Albumin 2.3 g/dL (3.4-5.0) Triglycerides Level 74 mg/dL (0-150) Cholesterol Level 129 mg/dL (0-200) LDL Cholesterol, Calculated 80 mg/dL (0-100) VLDL Cholesterol, Calculated 15 mg/dL (0-40) Non-HDL Cholesterol Calculated 95 mg/dL (0-129) HDL Cholesterol 34 mg/dL (40-60) Cholesterol/HDL Ratio 3.8 Brief Hospital Course Ms Cox is a 65yo F w/ PMHx Arthritis, CVA, Diabetes-Type II, Glaucoma, High Cholesterol, TIA, smoker, bipolar disorder who comes to the ED with complaints of abdominal pain, nausea and vomiting. She reports that it started on 02/12/2020 she awoke with RUQ and mid back pain while at home. The pain comes and goes, does not radiate into other parts of her abdomen. She began to have some nausea which was followed by vomiting. She continues to move her bowels, but has not been able to tolerate any food. No melena, no hematochezia, the emesis is bilious. Patient denies any change in urination, fever, chills, sweats, cough, change in smell or taste, shortness of breath or chest pain. Labs significant for WBC 8.7, Hb 13.6, platelets 22, NA 142, K3.1, CR 1, glucose 216, bilirubin 3.4, AST 571, ALT 930, alkaline phosphatase 198, albumin 3.1, lipase 88. RUQ US - Stones and sludge within the distention. Measures up to 10.3 cm. Wall thickening up to about 5 mm, Common Bile Duct: Dilated, 7 mm-8mm. Pancreatic duct 4-5 mm. Admitted for further care 02/15: Cr up to 1.9 today. Feeling better has an appetite. Pain is better. K3.2 02/16: LFTs improved. She feels better. NPO for surgery, seen pre-op. Surgery without complications, did need larger cystic duct clip. 02/17: Labs improved. Cr 1.5. She really wants to leave to live with her son. A1c 8.1. Has d/w to stay for LFT monitoring, if worse would MRCP. LFTs and bilirubin decreased today. Pain is resolved. No nausea she is tolerating p.o. well. She is amenable to taking oral diabetic agents but tells me she is "allergic" to insulin and is 100% adamantly opposed to taking it. She will have GI and surgery follow-up. Problem list: Nausea and vomiting - likely related to cholecystitis, IV antiemetics. On po RUQ pain - acute cholecystitis with possible choledocholithiasis. Zosyn q6hrs. Augmentin on d/c GLORIA - will monitor renal function, dose zosyn appropriately Diabetes-Type II - oral jardiance and januvia High Cholesterol - statin H/o TIA - counseled on smoking cessation, glycemic control Smoker - counseled on cessation Bipolar disorder - cont meds and mental health fu Greater than 30 minutes spent on d/c home Discharge Information Condition at Discharge: Improved Follow Up: Weeks (1) Disposition/Orders: D/C to Home Scheduled Empagliflozin (Jardiance) 10 Mg Tablet, 10 MG PO DAILY for DM2 for 90 Days, #90 Ref 1 Prescribed by: KATHY MADDEN MD on 02/18/20 1226 Simvastatin (Zocor) 40 Mg Tablet, 40 MG PO QHS for 30 Days Prescribed by: DASH POTTER on 02/21/14 1333 Sitagliptin Phosphate (Januvia) 100 Mg Tablet, 1 TAB PO DAILY for DM2 for 90 Days, #90 Ref 1 Prescribed by: KATHY MADDEN MD on 02/18/20 1226 [Aspirin] 325 MG TABLET.DR, 325 MG PO DAILYWBKFT Prescribed by: DASH POTTER on 02/21/14 1333 Scheduled PRN Hydrocodone/Apap 5-325 (Sylmar 5-325 Tablet) 1 Each Tablet, 1 EACH PO PRN Q6HRS PRN for severe pain for 6 Days, #20 as needed for pain Prescribed by: KATHY MADDEN MD on 02/18/20 1227 Ondansetron (Zofran Odt) 4 Mg Tab.rapdis, 1 TAB SL Q6HRS PRN for NAUSEA, #12 Prescribed by: KATJA CHU MD on 05/02/16 2157 Discontinued Medications Ciprofloxacin Hcl (Cipro) 500 Mg Tablet, 1 TAB PO BID, #10 Prescribed by: KATJA CHU MD on 05/02/16 2157 Ibuprofen (Ibuprofen) 800 Mg Tablet, 800 MG PO PRN TID PRN for PAIN, #20 take with food or milk to avoid upsetting stomach Prescribed by: NANCY MADSEN D.O. on 03/01/18 1528 Lisinopril/Hydrochlorothiazide (Lisinopril-Hctz 10-12.5 Mg Tab) 1 Each Tablet, 1 TAB PO DAILY, #30 Prescribed by: OLIVERIO ADAMES D.O. on 09/17/185 Justicifation of Admission Dx: Justifications for Admission: Justification of Admission Dx: Yes KATHY MADDEN MD Feb 19, 2020 11:58
--- NOTE | 2020-02-19 12:34 | PDOC ---
SURGICAL PROGRESS NOTE DATE: 02/19/20 TIME: 12:34 Subjective tolerating diet no pain home today Vital Signs Vital Signs Date Time Temp Pulse Resp B/P (MAP) Pulse Ox O2 Delivery O2 Flow Rate FiO2 02/19/20 11:43 98.8 62 17 163/61 (95) 98 Room Air 98.8 I&O Intake and Output 02/19/20 07:00 Intake Total 600 ml Balance 600 ml Intake Oral 600 ml # Voids 2 General: Alert, Oriented X3, Cooperative Abdomen: Soft, No tenderness Labs Laboratory Tests Test 02/18/20 09:30 02/19/20 04:38 White Blood Count 9.0 x10^3/uL (4.0-11.0) 6.0 x10^3/uL (4.0-11.0) Red Blood Count 4.49 x10^6/uL (3.50-5.40) 4.21 x10^6/uL (3.50-5.40) Hemoglobin 11.6 g/dL (12.0-15.5) 11.0 g/dL (12.0-15.5) Hematocrit 36.2 % (36.0-47.0) 33.8 % (36.0-47.0) Mean Corpuscular Volume 81 fL (79-100) 80 fL (79-100) Mean Corpuscular Hemoglobin 26 pg (25-35) 26 pg (25-35) Mean Corpuscular Hemoglobin Concent 32 g/dL (31-37) 32 g/dL (31-37) Red Cell Distribution Width 13.9 % (11.5-14.5) 14.1 % (11.5-14.5) Platelet Count 118 x10^3/uL (140-400) 132 x10^3/uL (140-400) Neutrophils (%) (Auto) 71 % (31-73) 53 % (31-73) Lymphocytes (%) (Auto) 17 % (24-48) 35 % (24-48) Monocytes (%) (Auto) 11 % (0-9) 10 % (0-9) Eosinophils (%) (Auto) 0 % (0-3) 2 % (0-3) Basophils (%) (Auto) 1 % (0-3) 1 % (0-3) Neutrophils # (Auto) 6.4 x10^3/uL (1.8-7.7) 3.2 x10^3/uL (1.8-7.7) Lymphocytes # (Auto) 1.5 x10^3/uL (1.0-4.8) 2.1 x10^3/uL (1.0-4.8) Monocytes # (Auto) 1.0 x10^3/uL (0.0-1.1) 0.6 x10^3/uL (0.0-1.1) Eosinophils # (Auto) 0.0 x10^3/uL (0.0-0.7) 0.1 x10^3/uL (0.0-0.7) Basophils # (Auto) 0.1 x10^3/uL (0.0-0.2) 0.1 x10^3/uL (0.0-0.2) Sodium Level 143 mmol/L (136-145) 143 mmol/L (136-145) Potassium Level 4.2 mmol/L (3.5-5.1) 3.8 mmol/L (3.5-5.1) Chloride Level 108 mmol/L (98-107) 109 mmol/L (98-107) Carbon Dioxide Level 27 mmol/L (21-32) 27 mmol/L (21-32) Anion Gap 8 (6-14) 7 (6-14) Blood Urea Nitrogen 16 mg/dL (7-20) 17 mg/dL (7-20) Creatinine 1.5 mg/dL (0.6-1.0) 1.5 mg/dL (0.6-1.0) Estimated GFR (Cockcroft-Gault) 41.9 41.9 BUN/Creatinine Ratio 11 (6-20) Glucose Level 181 mg/dL (70-99) 128 mg/dL (70-99) Calcium Level 8.2 mg/dL (8.5-10.1) 7.8 mg/dL (8.5-10.1) Total Bilirubin 3.7 mg/dL (0.2-1.0) 1.5 mg/dL (0.2-1.0) Aspartate Amino Transf (AST/SGOT) 127 U/L (15-37) 118 U/L (15-37) Alanine Aminotransferase (ALT/SGPT) 344 U/L (14-59) 315 U/L (14-59) Alkaline Phosphatase 159 U/L (46-116) 171 U/L (46-116) Total Protein 5.9 g/dL (6.4-8.2) 5.2 g/dL (6.4-8.2) Albumin 2.4 g/dL (3.4-5.0) 2.3 g/dL (3.4-5.0) Albumin/Globulin Ratio 0.7 (1.0-1.7) Direct Bilirubin 1.3 mg/dL (0.0-0.2) Triglycerides Level 74 mg/dL (0-150) Cholesterol Level 129 mg/dL (0-200) LDL Cholesterol, Calculated 80 mg/dL (0-100) VLDL Cholesterol, Calculated 15 mg/dL (0-40) Non-HDL Cholesterol Calculated 95 mg/dL (0-129) HDL Cholesterol 34 mg/dL (40-60) Cholesterol/HDL Ratio 3.8 Laboratory Tests Test 02/19/20 04:38 White Blood Count 6.0 x10^3/uL (4.0-11.0) Red Blood Count 4.21 x10^6/uL (3.50-5.40) Hemoglobin 11.0 g/dL (12.0-15.5) Hematocrit 33.8 % (36.0-47.0) Mean Corpuscular Volume 80 fL (79-100) Mean Corpuscular Hemoglobin 26 pg (25-35) Mean Corpuscular Hemoglobin Concent 32 g/dL (31-37) Red Cell Distribution Width 14.1 % (11.5-14.5) Platelet Count 132 x10^3/uL (140-400) Neutrophils (%) (Auto) 53 % (31-73) Lymphocytes (%) (Auto) 35 % (24-48) Monocytes (%) (Auto) 10 % (0-9) Eosinophils (%) (Auto) 2 % (0-3) Basophils (%) (Auto) 1 % (0-3) Neutrophils # (Auto) 3.2 x10^3/uL (1.8-7.7) Lymphocytes # (Auto) 2.1 x10^3/uL (1.0-4.8) Monocytes # (Auto) 0.6 x10^3/uL (0.0-1.1) Eosinophils # (Auto) 0.1 x10^3/uL (0.0-0.7) Basophils # (Auto) 0.1 x10^3/uL (0.0-0.2) Sodium Level 143 mmol/L (136-145) Potassium Level 3.8 mmol/L (3.5-5.1) Chloride Level 109 mmol/L (98-107) Carbon Dioxide Level 27 mmol/L (21-32) Anion Gap 7 (6-14) Blood Urea Nitrogen 17 mg/dL (7-20) Creatinine 1.5 mg/dL (0.6-1.0) Estimated GFR (Cockcroft-Gault) 41.9 Glucose Level 128 mg/dL (70-99) Calcium Level 7.8 mg/dL (8.5-10.1) Total Bilirubin 1.5 mg/dL (0.2-1.0) Direct Bilirubin 1.3 mg/dL (0.0-0.2) Aspartate Amino Transf (AST/SGOT) 118 U/L (15-37) Alanine Aminotransferase (ALT/SGPT) 315 U/L (14-59) Alkaline Phosphatase 171 U/L (46-116) Total Protein 5.2 g/dL (6.4-8.2) Albumin 2.3 g/dL (3.4-5.0) Triglycerides Level 74 mg/dL (0-150) Cholesterol Level 129 mg/dL (0-200) LDL Cholesterol, Calculated 80 mg/dL (0-100) VLDL Cholesterol, Calculated 15 mg/dL (0-40) Non-HDL Cholesterol Calculated 95 mg/dL (0-129) HDL Cholesterol 34 mg/dL (40-60) Cholesterol/HDL Ratio 3.8 Problem List Problems Medical Problems: (1) Acute cholecystitis Status: Acute (2) Common bile duct stone Status: Acute (3) Nausea & vomiting Status: Acute (4) Right upper quadrant abdominal pain Status: Acute Assessment/Plan s/p ilir ok to ar home FU 2 weeks Justicifation of Admission Dx: Justifications for Admission: Justification of Admission Dx: Yes 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
--- NOTE | 2020-02-19 13:10 | NUR ---
Discharge Note: PT DISCHARGED HOME WITH SELF CARE. PT LEFT FACILITY VIA PRIVATE VEHICLE WITH [id number] AT 1245. PT STABLE AND ALERT UPON DISCHARGE. PT PIV REMOVED FROM R AC WITHOUT COMPLICATIONS, BANDAGE APPLIED. PT EDUCATED ABOUT DISCHARGE INSTRUCTIONS, DISCHARGE MEDICATIONS, AND FOLLOW-UP CARE. PT EDUCATED ABOUT RESTRICTIONS POST-OP AND INCISION CARE. PT VOICED NO CONCERNS AT THIS TIME. PT GIVEN LIST OF PRIMARY CARE PHYSICIANS THAT SHE COULD SEE OUTSIDE OF THE HOSPITAL IN [place]. PT LEFT WITH ALL PERSONAL BELONGINGS. ELFEGO PARSONS Discharge instructions and discharge home medications reviewed with Patient and a copy given. All questions have been answered and understanding verbalized.
--- NOTE | 2020-02-22 13:08 | PATHOLOGY ---
[facility] Accession Number: [id number] . 01 Material submitted: . gallbladder - GALLBLADDER AND CONTENTS . 01 Clinical history: . ACUTE CHOLECYSTITIS . 02 Diagnosis: Gallbladder, excision: - Chronic cholecystitis with focally prominent eosinophils; negative for malignancy. - Cholesterolosis. - Lithiasis. . Lymph node "pericystic duct region", excision: - Reactive follicular lymphoid hyperplasia with scattered lipogranulomatous inflammation. - Negative for malignancy. (MLK/db; 02/21/2020) LBQ 02/22/2020 1258 Local . 02 Electronically signed: . Krystin Daley MD, Pathologist NPI- [id number] . 01 Gross description: . The specimen is received in formalin, labeled "Magaly Cox, gallbladder and contents". Received is an intact gallbladder measuring 8.3 x 3.1 x 2.7 cm in greatest dimensions displaying a pink-camejo serosal surface. Opening the specimen reveals a velvety, bile-stained mucosa with a gallbladder wall thickness of 0.1 cm. Calculi are present displaying a bright yellow and nodular appearance, and no masses or lesions are noted grossly. At the proximal margin, a single lymph node is identified measuring 1.0 cm, which is bisected. Clinic Lead sections, to include the proximal margin and lymph node, are submitted in cassette A1. (CAA; 02/18/2020) QAC/QAC 02/18/2020 1326 Local . 02 Pathologist provided ICD-10: K80.10, K82.4 . 02 CPT . 015314 Specimen Comment: A courtesy copy of this report has been sent to [phone] Specimen Comment: [id number] Specimen Comment: Report sent to / DR MADDEN Performed at: 01 [facility] [address], [place], [place] [id number] MD Rolo Roberts MD Phone: [phone] Performed at: 02 [facility] [address], [place] [id number] MD Theo Paez MD Phone: [phone]
== END 2020-02-19 12:45 | disposition home or self-care (01) | DRG 417 ==
LOC: ER 20:27 → 5 NORTH 02-15 01:07
PROVIDERS: ADMIT Internal Medicine; ATTEND Internal Medicine
PROC: 0FT44ZZ Resection of Gallbladder, Percutaneous Endoscopic Approach (ICD-10-PCS; principal; 2020-02-17 14:15)
DX: K80.62 Calculus of gallbladder and bile duct with acute cholecystitis without obstruction (principal); N17.0 Acute kidney failure with tubular necrosis; E11.9 Type 2 diabetes mellitus without complications; E78.00 Pure hypercholesterolemia, unspecified; E78.5 Hyperlipidemia, unspecified; F17.210 Nicotine dependence, cigarettes, uncomplicated; F31.9 Bipolar disorder, unspecified; I10 Essential (primary) hypertension; K59.00 Constipation, unspecified; K76.0 Fatty (change of) liver, not elsewhere classified; K82.8 Other specified diseases of gallbladder; Z20.828 Contact with and (suspected) exposure to other viral communicable diseases; Z79.82 Long term (current) use of aspirin; Z80.9 Family history of malignant neoplasm, unspecified; Z82.49 Family history of ischemic heart disease and other diseases of the circulatory system; Z86.73 Personal history of transient ischemic attack (TIA), and cerebral infarction without residual deficits
CPT/HCPCS: 36415; 76705; 80048; 80053; 80061; 80076; 81001; 83036; 83690; 85025; 87086; 87426; 88304; 96361; 96365; 96375; A7015; J0360; J1100; J1650; J1885; J2405; J2543; J2704; J2710; J2765; J3010; J3480; J3490; J7030; 99285-25; G0378; U0003-CS